=== PATIENT | male | born 1965 | race African-American/Black ===

== ENCOUNTER 2017-07-10 16:22 | Inpatient (IN) | payer OTHER ==
[2017-07-10 16:41] VITALS: BMI 22.1
[2017-07-10] MEDS ORDERED: P-EPHED 60MG/TRIPROLIDI 2.5MG TABLET PO PRN (19:32)
[2017-07-10] MEDS ORDERED: IBUPROFEN 400 MG TABLET (FP) PO PRN (19:32)
[2017-07-10] MEDS ORDERED: guaiFENesin/D-METHORPHAN HB 10 ML UNIT-DOSE CUPS PO PRN (19:32)
[2017-07-10] MEDS ORDERED: chlordiazePOXIDE HCL 25 MG CAPSULE PO ONE (19:32)
[2017-07-10] MEDS ORDERED: LOPERAMIDE HCL 2 MG CAPSULE PO PRN (19:32)
[2017-07-10] MEDS ORDERED: NICOTINE POLACRILEX 2 MG GUM BC PRN (19:32)
[2017-07-10] MEDS ORDERED: chlordiazePOXIDE HCL 25 MG CAPSULE PO PRN (19:32)
[2017-07-10] MEDS ORDERED: MAGNESIUM HYDROX 2400MG/30ML ORAL SUSPENSION 30 ML CUP PO PRN (19:32)
[2017-07-10] MEDS ORDERED: MENTHOL/PHENOL 1 EACH UD MM PRN (19:32)
[2017-07-10] MEDS ORDERED: MAG HYDROX/AL HYDROX/SIMETH 30 ML UNIT-DOSE CUP PO PRN (19:32)
[2017-07-10] MEDS ORDERED: ACETAMINOPHEN 325 MG TABLET (FP) PO PRN (19:32)
[2017-07-10] MEDS ORDERED: MAGNESIUM CITRATE 300 ML BOTTLE PO PRN (19:32)
[2017-07-10] MEDS ORDERED: METHADONE HCL 10 MG TABLET (FOR DETOX USE ONLY) PO ONE ×2 (19:32→23:00)
--- NOTE | 2017-07-10 19:43 | HP ---
Admission ROS [facility] - [facility] Allergies/Adverse Reactions: Allergies Allergy/AdvReac Type Severity Reaction Status Date / Time shellfish derived Allergy Mild Hives Verified 10/22/16 13:31 No Known Drug Allergies Allergy Verified 10/22/16 13:31 - Ebola screening Have you traveled outside of the country in the last 21 days: No (N) Have you had contact with anyone from an Ebola affected area: No Have you been sick,other than usual withdrawal symptoms: No Do you have a fever: No Patient History - Patient Medical History Hx Anemia: No Hx Asthma: No Hx Chronic Obstructive Pulmonary Disease (COPD): No Hx Cancer: No Hx Cardiac Disorders: Yes (pacemaker in place) Hx Congestive Heart Failure: No Hx Hypertension: Yes Hx Hypercholesterolemia: Yes (ON MEDS) Hx Pacemaker: No HX Cerebrovascular Accident: No Hx Seizures: No Hx Dementia: No Hx Diabetes: No Hx Gastrointestinal Disorders: Yes (acid reflux) Hx Liver Disease: No Hx Genitourinary Disorders: No Hx Sexually Transmitted Disorders: No Hx Renal Disease (ESRD): No Hx Thyroid Disease: No Hx Human Immunodeficiency Virus (HIV): Yes (SINCE 1994-ON MEDS; ORAL THRUSH AND PCP PNEUMONIA IN THE PAST.) Hx Hepatitis C: No Hx Depression: Yes Hx Suicide Attempt: No Hx Bipolar Disorder: No (HX INSOMNIA) Hx Schizophrenia: No - Patient Surgical History Past Surgical History: Yes Hx Neurologic Surgery: No Hx Cataract Extraction: No Hx Cardiac Surgery: Yes (Cardiac cath with stents in 07/15) Hx Lung Surgery: No Hx Breast Surgery: No Hx Breast Biopsy: No Hx Abdominal Surgery: No Hx Appendectomy: No Hx Cholecystectomy: No Hx Genitourinary Surgery: No Hx Section: No Hx Orthopedic Surgery: No Other Surgical History: pacemaker implanted in 2013 Anesthesia Reaction: No - Smoking Cessation Smoking history: Current every day smoker Have you smoked in the past 12 months: Yes Aproximately how many cigarettes per day: 20 Hx Chewing Tobacco Use: No Initiated information on smoking cessation: Yes 'Breaking Loose' booklet given: 07/10/17 - Substance & Tx. History Hx Alcohol Use: Yes Hx Substance Use: Yes Substance Use Type: Alcohol, Heroin Hx Substance Use Treatment: Yes (Detox) - Substances Abused Alcohol Route: Oral Frequency: Daily Amount used: Vodka 1 pint Age of first use: 15 Date of Last Use: 07/10/17 Heroin Route: Inhalation Frequency: Daily Amount used: 3-4 bags Age of first use: 15 Date of Last Use: 07/10/17 Family Disease History - Family Disease History Family History: Denies Admission Physical Exam [facility] - Vital Signs Vital Signs: Vital Signs - 24 hr 07/10/17 16:39 Temperature 98.6 F Pulse Rate 81 Respiratory 18 Rate Blood Pressure 107/70 - Physical General Appearance: Yes: Tremorous, Irritable, Sweating, Anxious HEENTM: Yes: Nasal Congestion, Rhinorrhea Respiratory: Yes: Chest Non-Tender, Lungs Clear, Normal Breath Sounds Neck: Yes: Supple Breast: Yes: Breast Exam Deferred Cardiology: Yes: Regular Rhythm, Regular Rate, S1, S2 Abdominal: Yes: Normal Bowel Sounds, Non Tender, Soft Genitourinary: Yes: Within Normal Limits Back: Yes: Within Normal Limits Musculoskeletal: Yes: Within Normal Limits Extremities: Yes: Tremors Neurological: Yes: Fully Oriented, Alert Integumentary: Yes: Diaphoresis Lymphatic: Yes: Within Normal Limits - Diagnostic (1) Opioid dependence with withdrawal Current Visit: Yes Status: Acute (2) Alcohol dependence with uncomplicated withdrawal Current Visit: Yes Status: Acute (3) PPD positive Current Visit: No Status: Acute (4) Status post myocardial infarction Current Visit: No Status: Acute (5) HIV disease Current Visit: Yes Status: Chronic Cleared for Admission [facility] - Detox or Rehab [facility] Level of Care: Medically Managed Detox Regimen/Protocol: Methadone/Librium [facility] Breath Alcohol Content Breath Alcohol Content: 0 Urine Drug Screen - Results Drug Screen Negative: No Urine Drug Screen Results: OPI-Opiates, MTD-Methadone
[2017-07-10] MEDS ORDERED: METHADONE HCL 10 MG TABLET (FOR DETOX USE ONLY) ONE (22:10)
[2017-07-10] MEDS: chlordiazePOXIDE HCL 25 MG CAPSULE PO SCH (22:11)
[2017-07-10] MEDS: ATORVASTATIN CA 40 MG TABLET (FP) PO SCH (22:11)
[2017-07-10] MEDS: THIAMINE HCL 100 MG TABLET (FP) PO SCH (22:12)
[2017-07-10] MEDS: CARVEDILOL 12.5 MG TABLET (FP) PO SCH (23:01)
[2017-07-10] MEDS: NICOTINE 21 MG/24 HOURS TOPICAL PATCH TD SCH (23:17)
[2017-07-11] MEDS: hydrALAZINE HCL 25 MG TABLET (FP) PO SCH ×3 (00:13→22:16)
[2017-07-11] MEDS: chlordiazePOXIDE HCL 25 MG CAPSULE PO SCH ×4 (05:19→22:14)
[2017-07-11] MEDS ORDERED: METHADONE HCL 10 MG TABLET (FOR DETOX USE ONLY) PO SCH (10:00)
[2017-07-11] MEDS ORDERED: LISINOPRIL PO SCH (10:00)
[2017-07-11 10:10] LABS: ANION GAP 7 (8-16); CALCIUM 7.8 mg/dL (8.5-10.1); CHLORIDE 103 mmol/L (98-107); CO2 28 mmol/L (21-32); POTASSIUM 3.5 mmol/L (3.5-5.1); SODIUM 138 mmol/L (136-145)
[2017-07-11 10:13] LABS: HEMATOCRIT 39.6 % (35.4-49); HEMOGLOBIN 13.1 GM/dL (11.7-16.9); MCHC 33.1 g/dl (32.0-35.9); MEAN CELL VOLUME 102.7 fl (80-96); MEAN PLT VOLUME 9.1 fl (7.5-11.1); PLATELET COUNT 109 K/MM3 (134-434); RBC 3.85 M/mm3 (4.00-5.60); RDW 12.8 % (11.9-15.9); WHITE BLOOD COUNT 4.2 K/mm3 (4.0-10.0)
[2017-07-11 10:16] LABS: ALBUMIN 3.1 g/dl (3.4-5.0); ALK PHOS 96 U/L (45-117); BILIRUBIN,TOTAL 0.7 mg/dL (0.2-1.0); BLOOD UREA NITROGEN 8 mg/dL (7-18); GLUCOSE,RANDOM 100 mg/dL (74-106); SGOT/AST 14 U/L (15-37); SGPT/ALT 19 U/L (12-78); TOT PROT 6.8 g/dl (6.4-8.2)
--- NOTE | 2017-07-11 10:37 | CONSULT ---
[facility] Psychiatric Consult - Data Date of interview: 07/11/17 Admission source: Self-referred Identifying data: Mr Rice is a 49 years old single Black male, unemployed on HASA, domiciled seeking detox treatment for alcohol and heroin Substance Abuse History: Reports history of alcohol and heroin use. Refer to addiction counselor's note for further information Medical History: Significant for hypertension, hyperlipidemia, gerd, hiv/aids, CAD/NC with stent and pacemaker placement. Smokes cigarettes 1ppd Psychiatric History: Patient is uncooperative, guarded and negativistic. At first, he denies having a previous psychiatric history. However when reminded of information he provided to machine sign writer on a previous encounter when he sought detox in this facilty in 2014, He acknowledged that history and said:'I don' t see psychiatrist anymore. I have not taken medicaton for years'. In Mar 2015 , he told machine sign writer that he was diagnosed with Bipolar Disorder years ago. He denied previous psychiatric hospitalization. Reported non-compliance with OPD care and medications. Told machine sign writer that he used to take paxil, Remeron and stopped medication in 2012. At present, reports feeling fine and sleeping well. However, he looks angry Physical/Sexual Abuse/Trauma History: Denies history of verbal, physical or sexual abuse as well as DV relationship. No service Additional Comment: Reports history of one previous misdemeanor arrest Mental Status Exam - Mental Status Exam Alert and Oriented to: Time, Place, Person Cognitive Function: Fair Patient Appearance: Well Groomed Mood: Irritable Affect: Appropriate Patient Behavior: Uncooperative Speech Pattern: Clear Voice Loudness: Normal Thought Process: Intact, Goal Oriented Hallucinations: Denies Suicidal Ideation: Denies Homicidal Ideation: Denies Insight/Judgement: Poor Sleep: Well Appetite: Good Muscle strength/Tone: Normal Gait/Station: Normal Psychiatric Findings - Problem List ([place] 1, 2,3) (1) Substance induced mood disorder Current Visit: Yes Status: Acute (2) Alcohol dependence with uncomplicated withdrawal Current Visit: Yes Status: Acute (3) Opioid dependence with withdrawal Current Visit: Yes Status: Acute (4) Nicotine dependence Current Visit: No Status: Chronic (5) HIV disease Current Visit: Yes Status: Chronic (6) PPD positive Current Visit: No Status: Acute (7) Peripheral neuropathy Current Visit: No Status: Chronic (8) S/P arterial stent Current Visit: No Status: Chronic (9) Status post myocardial infarction Current Visit: No Status: Chronic (10) HTN (hypertension) Current Visit: No Status: Chronic (11) Hyperlipidemia Current Visit: No Status: Chronic - Initial Treatment Plan Initial Treatment Plan: Continue inpatient detoxification
[2017-07-11] MEDS: CLOPIDOGREL BISULFATE 75 MG TABLET (FP) PO SCH (10:59)
[2017-07-11] MEDS: PANTOPRAZOLE 40 MG TABLET (FP) PO SCH (10:59)
[2017-07-11] MEDS: LISINOPRIL 5 MG TABLET (FP) PO SCH (10:59)
[2017-07-11] MEDS: FUROSEMIDE 40 MG TABLET (FP) PO SCH (10:59)
[2017-07-11] MEDS: PRENATAL VITAMINS W/ FOLIC ACID TABLET (FP) PO SCH (10:59)
[2017-07-11] MEDS: CARVEDILOL 12.5 MG TABLET (FP) PO SCH ×2 (10:59→22:16)
[2017-07-11] MEDS: ASPIRIN COATED 81 MG TABLET.EC PO SCH (10:59)
[2017-07-11] MEDS: NICOTINE 21 MG/24 HOURS TOPICAL PATCH TD SCH (11:00)
[2017-07-11] MEDS ORDERED: FLU VACCINE QUAD 60 MCG/0.5 ML (MDV 17-18) IM ONE (12:00)
[2017-07-11] MEDS ORDERED: PNEUMOC 13-VAL CONJ-DIP CRM/PF 0.5 ML DISP.SYRIN IM ONE (12:00)
--- NOTE | 2017-07-11 12:53 | PN ---
S CIWA - CIWA Score Nausea/Vomitin Muscle Tremors: 4-Moderate,w/Arms Extend Anxiety: 4-Mod. Anxious/Guarded Agitation: 4-Moderately Restless Paroxysmal Sweats: 3 Orientation: 0-Oriented Tacttile Disturbances: 1-Very Mild Itch/Numbness Auditory Disturbances: 0-None Visual Disturbances: 0-None Headache: 1-Very Mild CIWA-Ar Total Score: 20 BHS COWS - Scale Resting Pulse: 0= [place] 80 or Below Sweatin=Flushed/Facial Moisture Restless Observation: 3= Extraneous Movement Pupil Size: 0= Normal to Room Light Bone or Joint Aches: 2= Severe Diffuse Aches Runny Nose/ Eye Tearin= Nasal Congestion GI Upset > 30mins: 2= Nausea/Diarrhea Tremor Observation of Outstretched Hands: 2= Slight Tremor Visible Yawning Observation: 0= None Anxiety or Irritability: 2=Irritable/Anxious Goose Flesh Skin: 0=Smooth Skin COWS Score: 14 BHS Progress Note (SOAP) Subjective: Sweating, tremor, anxious, interrupted sleep Objective: 07/11/17 12:49 Last Vital Signs Temp Pulse Resp BP Pulse Ox 97.1 F L 65 18 98/66 07/11/17 10:31 07/11/17 10:31 07/11/17 10:31 07/11/17 10:31 b/p noted: hypotension (asymptomatic) Laboratory Tests 07/11/17 07/11/17 07/11/17 08:00 08:00 08:00 WBC 4.2 RBC 3.85 L Hgb 13.1 Hct 39.6 MCV 102.7 H MCH 34.0 H MCHC 33.1 RDW 12.8 Plt Count 109 L D MPV 9.1 D Sodium 138 Potassium 3.5 Chloride 103 Carbon Dioxide 28 Anion Gap 7 L BUN 8 Creatinine 1.0 D Creat Clearance w eGFR > 60 Random Glucose 100 D Calcium 7.8 L Total Bilirubin 0.7 AST 14 L D ALT 19 D Alkaline Phosphatase 96 D Total Protein 6.8 Albumin 3.1 L RPR Titer Nonreactive Labs noted Assessment: 07/11/17 12:50 Withdrawal symptoms Noted with abnormal EKG (prolonged QTc of 481) Plan: Continue detox Hypotension: asymptomatic, encouraged to drink lots of water Abnormal EKG (prolonged QTc): asymptomatic, repeat EKG in AM
[2017-07-11] MEDS ORDERED: ATORVASTATIN CA 20 MG TABLET (FP) ONE (21:29)
[2017-07-11] MEDS: ATORVASTATIN CA 40 MG TABLET (FP) PO SCH (22:14)
[2017-07-11] MEDS: hydrOXYzine PAMOATE 50 MG CAPSULE (FP) PO PRN (22:16)
[2017-07-11] MEDS: THIAMINE HCL 100 MG TABLET (FP) PO SCH (22:16)
[2017-07-12] MEDS: chlordiazePOXIDE HCL 25 MG CAPSULE PO SCH ×3 (06:26→17:34)
[2017-07-12] MEDS: PRENATAL VITAMINS W/ FOLIC ACID TABLET (FP) PO SCH (10:09)
[2017-07-12] MEDS: hydrALAZINE HCL 25 MG TABLET (FP) PO SCH ×2 (10:09→22:19)
[2017-07-12] MEDS: CARVEDILOL 12.5 MG TABLET (FP) PO SCH ×2 (10:09→22:19)
[2017-07-12] MEDS: NICOTINE 21 MG/24 HOURS TOPICAL PATCH TD SCH (10:11)
[2017-07-12] MEDS: METHADONE HCL 5 MG TABLET (FOR DETOX USE ONLY) PO SCH (10:11)
[2017-07-12] MEDS: ASPIRIN COATED 81 MG TABLET.EC PO SCH (10:11)
[2017-07-12] MEDS: FUROSEMIDE 40 MG TABLET (FP) PO SCH (10:11)
[2017-07-12] MEDS: CLOPIDOGREL BISULFATE 75 MG TABLET (FP) PO SCH (10:12)
[2017-07-12] MEDS: PANTOPRAZOLE 40 MG TABLET (FP) PO SCH (10:12)
[2017-07-12] MEDS: LISINOPRIL 5 MG TABLET (FP) PO SCH (10:12)
--- NOTE | 2017-07-12 12:01 | PN ---
[facility] CIWA - CIWA Score Nausea/Vomitin-No Nausea/No Vomiting Muscle Tremors: 3 Anxiety: 4-Mod. Anxious/Guarded Agitation: 3 Paroxysmal Sweats: 3 Orientation: 0-Oriented Tacttile Disturbances: 2-Mild Itch/Numbness/Burn Auditory Disturbances: 0-None Visual Disturbances: 0-None Headache: 0-None Present CIWA-Ar Total Score: 15 BHS COWS - Scale Resting Pulse: 0= [place] 80 or Below Sweatin= Chills/Flushing Restless Observation: 1= Difficult to Sit Still Pupil Size: 0= Normal to Room Light Bone or Joint Aches: 1= Mild Discomfort Runny Nose/ Eye Tearin= Nasal Congestion GI Upset > 30mins: 0= None Tremor Observation of Outstretched Hands: 2= Slight Tremor Visible Yawning Observation: 1= 1-2x During Session Anxiety or Irritability: 2=Irritable/Anxious Goose Flesh Skin: 3=Piloerection COWS Score: 12 BHS Progress Note (SOAP) Subjective: Tremors, Sweating, Anxious. Objective: PT. A & O X 3, OBSERVED AMBULATING ON UNIT. NO ACUTE DISTRESS. 07/12/17 11:58 Vital Signs Temperature 98.9 F 07/12/17 09:20 Pulse Rate 75 07/12/17 09:20 Respiratory Rate 16 07/12/17 09:20 Blood Pressure 111/72 07/12/17 09:20 O2 Sat by Pulse Oximetry (%) Laboratory Tests 07/11/17 07/11/17 07/11/17 08:00 08:00 08:00 WBC 4.2 RBC 3.85 L Hgb 13.1 Hct 39.6 MCV 102.7 H MCH 34.0 H MCHC 33.1 RDW 12.8 Plt Count 109 L D MPV 9.1 D Sodium 138 Potassium 3.5 Chloride 103 Carbon Dioxide 28 Anion Gap 7 L BUN 8 Creatinine 1.0 D Creat Clearance w eGFR > 60 Random Glucose 100 D Calcium 7.8 L Total Bilirubin 0.7 AST 14 L D ALT 19 D Alkaline Phosphatase 96 D Total Protein 6.8 Albumin 3.1 L RPR Titer Nonreactive LABS NOTED. UA RESULTS PENDING. 07/12/17 12:00 Assessment: 07/12/17 11:58 WITHDRAWAL SYMPTOMS. Plan: CONTINUE DETOX.
--- NOTE | 2017-07-12 15:14 | EKG ---
Test Reason : Blood Pressure : / mmHG Vent. Rate : 062 BPM Atrial Rate : 062 BPM P-R Int : 166 ms QRS Dur : 092 ms QT Int : 474 ms P-R-T Axes : 044 -13 244 degrees QTc Int : 481 ms NORMAL SINUS RHYTHM SEPTAL INFARCT (CITED ON OR BEFORE 10-JUL-2017) ABNORMAL ECG WHEN COMPARED WITH ECG OF 10-JUL-2017 22:30, Confirmed by LYDNA CERVANTES MD ([id number]) on 07/12/2017 3:14:43 PM Referred By: Confirmed By:LYNDA CERVANTES MD
[2017-07-12] MEDS: chlordiazePOXIDE 5 MG CAPSULE PO SCH (22:18)
[2017-07-12] MEDS: THIAMINE HCL 100 MG TABLET (FP) PO SCH (22:18)
[2017-07-12] MEDS: ATORVASTATIN CA 40 MG TABLET (FP) PO SCH (22:19)
[2017-07-12] MEDS: hydrOXYzine PAMOATE 50 MG CAPSULE (FP) PO PRN (22:20)
[2017-07-13] MEDS: chlordiazePOXIDE 5 MG CAPSULE PO SCH ×3 (05:22→17:32)
[2017-07-13] MEDS: PRENATAL VITAMINS W/ FOLIC ACID TABLET (FP) PO SCH (10:13)
[2017-07-13] MEDS: METHADONE HCL 5 MG TABLET (FOR DETOX USE ONLY) PO SCH (10:13)
[2017-07-13] MEDS: PANTOPRAZOLE 40 MG TABLET (FP) PO SCH (10:13)
[2017-07-13] MEDS: LISINOPRIL 5 MG TABLET (FP) PO SCH (10:14)
[2017-07-13] MEDS: CLOPIDOGREL BISULFATE 75 MG TABLET (FP) PO SCH (10:14)
[2017-07-13] MEDS: CARVEDILOL 12.5 MG TABLET (FP) PO SCH ×2 (10:14→22:15)
[2017-07-13] MEDS: FUROSEMIDE 40 MG TABLET (FP) PO SCH (10:14)
[2017-07-13] MEDS: ASPIRIN COATED 81 MG TABLET.EC PO SCH (10:14)
[2017-07-13] MEDS: NICOTINE 21 MG/24 HOURS TOPICAL PATCH TD SCH (10:14)
[2017-07-13] MEDS: hydrALAZINE HCL 25 MG TABLET (FP) PO SCH ×2 (10:14→22:15)
--- NOTE | 2017-07-13 10:30 | PN ---
BHS Progress Note (SOAP) Subjective: tremor sweating agitation Objective: 07/13/17 10:29 Vital Signs Temperature 99.1 F 07/13/17 09:10 Pulse Rate 81 07/13/17 09:10 Respiratory Rate 16 07/13/17 09:10 Blood Pressure 100/68 07/13/17 09:10 O2 Sat by Pulse Oximetry (%) Laboratory Last Values WBC 4.2 K/mm3 (4.0-10.0) 07/11/17 08:00 RBC 3.85 M/mm3 (4.00-5.60) L 07/11/17 08:00 Hgb 13.1 GM/dL (11.7-16.9) 07/11/17 08:00 Hct 39.6 % (35.4-49) 07/11/17 08:00 MCV 102.7 fl (80-96) H 07/11/17 08:00 MCH 34.0 pg (25.7-33.7) H 07/11/17 08:00 MCHC 33.1 g/dl (32.0-35.9) 07/11/17 08:00 RDW 12.8 % (11.9-15.9) 07/11/17 08:00 Plt Count 109 K/MM3 (134-434) L D 07/11/17 08:00 MPV 9.1 fl (7.5-11.1) D 07/11/17 08:00 Sodium 138 mmol/L (136-145) 07/11/17 08:00 Potassium 3.5 mmol/L (3.5-5.1) 07/11/17 08:00 Chloride 103 mmol/L (98-107) 07/11/17 08:00 Carbon Dioxide 28 mmol/L (21-32) 07/11/17 08:00 Anion Gap 7 (8-16) L 07/11/17 08:00 BUN 8 mg/dL (7-18) 07/11/17 08:00 Creatinine 1.0 mg/dL (0.7-1.3) D 07/11/17 08:00 Creat Clearance w eGFR > 60 (>60) 07/11/17 08:00 Random Glucose 100 mg/dL (74-106) D 07/11/17 08:00 Calcium 7.8 mg/dL (8.5-10.1) L 07/11/17 08:00 Total Bilirubin 0.7 mg/dL (0.2-1.0) 07/11/17 08:00 AST 14 U/L (15-37) L D 07/11/17 08:00 ALT 19 U/L (12-78) D 07/11/17 08:00 Alkaline Phosphatase 96 U/L (45-117) D 07/11/17 08:00 Total Protein 6.8 g/dl (6.4-8.2) 07/11/17 08:00 Albumin 3.1 g/dl (3.4-5.0) L 07/11/17 08:00 RPR Titer Nonreactive (NONREACTIVE) 07/11/17 08:00 lab noted Assessment: 07/13/17 10:29 mild withdrawal sx Plan: observation with detox regimen
[2017-07-13 19:17] LABS: URINE APPEARANCE SLCLOUDY; URINE BILIRUBIN NEGATIVE (NEGATIVE); URINE BLOOD NEGATIVE (NEGATIVE); URINE COLOR YELLOW; URINE GLUCOSE (UA) NEGATIVE (NEGATIVE); URINE KETONE NEGATIVE (NEGATIVE); URINE LEUK ESTERASE NEGATIVE (NEGATIVE); URINE NITRITE NEGATIVE (NEGATIVE); URINE PROTEIN NEGATIVE (NEGATIVE)
[2017-07-13] MEDS: ATORVASTATIN CA 40 MG TABLET (FP) PO SCH (22:15)
[2017-07-13] MEDS: THIAMINE HCL 100 MG TABLET (FP) PO SCH (22:15)
[2017-07-13] MEDS: chlordiazePOXIDE HCL 10 MG CAPSULE PO SCH (22:15)
[2017-07-13] MEDS: hydrOXYzine PAMOATE 50 MG CAPSULE (FP) PO PRN (22:49)
[2017-07-14] MEDS: chlordiazePOXIDE HCL 10 MG CAPSULE PO SCH ×2 (05:55→10:15)
[2017-07-14 09:50] VITALS: BP 105/64; PULSE 79; TEMP 98.1
[2017-07-14] MEDS ORDERED: METHADONE HCL 10 MG TABLET (FOR DETOX USE ONLY) PO SCH (10:00)
[2017-07-14] MEDS: CARVEDILOL 12.5 MG TABLET (FP) PO SCH (10:14)
[2017-07-14] MEDS: CLOPIDOGREL BISULFATE 75 MG TABLET (FP) PO SCH (10:14)
[2017-07-14] MEDS: ASPIRIN COATED 81 MG TABLET.EC PO SCH (10:14)
[2017-07-14] MEDS: hydrALAZINE HCL 25 MG TABLET (FP) PO SCH (10:14)
[2017-07-14] MEDS: FUROSEMIDE 40 MG TABLET (FP) PO SCH (10:14)
[2017-07-14] MEDS: PRENATAL VITAMINS W/ FOLIC ACID TABLET (FP) PO SCH (10:14)
[2017-07-14] MEDS: LISINOPRIL 5 MG TABLET (FP) PO SCH (10:15)
[2017-07-14] MEDS: NICOTINE 21 MG/24 HOURS TOPICAL PATCH TD SCH (10:15)
[2017-07-14] MEDS: PANTOPRAZOLE 40 MG TABLET (FP) PO SCH (10:15)
--- NOTE | 2017-07-14 10:42 | PN ---
S Progress Note (SOAP) Subjective: PT IS ALERT O X 3. WANTS TO LEAVE TODAY BUT ON METHADONE AND LIBRIUM PROTOCOL NOT COMPLETED. EXPLAINED TO PT THE NEED TO STAY FOR APPROPRIATE TAPER BUT DECIDED TO SIGN HIMSELF OUT AMA. Objective: 07/14/17 10:45 Vital Signs Temperature 98.1 F 07/14/17 09:50 Pulse Rate 79 07/14/17 09:50 Respiratory Rate 18 07/14/17 09:50 Blood Pressure 105/64 07/14/17 09:50 O2 Sat by Pulse Oximetry (%) Laboratory Last Values WBC 4.2 K/mm3 (4.0-10.0) 07/11/17 08:00 RBC 3.85 M/mm3 (4.00-5.60) L 07/11/17 08:00 Hgb 13.1 GM/dL (11.7-16.9) 07/11/17 08:00 Hct 39.6 % (35.4-49) 07/11/17 08:00 MCV 102.7 fl (80-96) H 07/11/17 08:00 MCH 34.0 pg (25.7-33.7) H 07/11/17 08:00 MCHC 33.1 g/dl (32.0-35.9) 07/11/17 08:00 RDW 12.8 % (11.9-15.9) 07/11/17 08:00 Plt Count 109 K/MM3 (134-434) L D 07/11/17 08:00 MPV 9.1 fl (7.5-11.1) D 07/11/17 08:00 Sodium 138 mmol/L (136-145) 07/11/17 08:00 Potassium 3.5 mmol/L (3.5-5.1) 07/11/17 08:00 Chloride 103 mmol/L (98-107) 07/11/17 08:00 Carbon Dioxide 28 mmol/L (21-32) 07/11/17 08:00 Anion Gap 7 (8-16) L 07/11/17 08:00 BUN 8 mg/dL (7-18) 07/11/17 08:00 Creatinine 1.0 mg/dL (0.7-1.3) D 07/11/17 08:00 Creat Clearance w eGFR > 60 (>60) 07/11/17 08:00 Random Glucose 100 mg/dL (74-106) D 07/11/17 08:00 Calcium 7.8 mg/dL (8.5-10.1) L 07/11/17 08:00 Total Bilirubin 0.7 mg/dL (0.2-1.0) 07/11/17 08:00 AST 14 U/L (15-37) L D 07/11/17 08:00 ALT 19 U/L (12-78) D 07/11/17 08:00 Alkaline Phosphatase 96 U/L (45-117) D 07/11/17 08:00 Total Protein 6.8 g/dl (6.4-8.2) 07/11/17 08:00 Albumin 3.1 g/dl (3.4-5.0) L 07/11/17 08:00 Urine Color Yellow 07/13/17 18:30 Urine Appearance Slcloudy 07/13/17 18:30 Urine pH 5.0 (5.0-8.0) 07/13/17 18:30 Ur Specific [place] 1.014 (1.001-1.035) 07/13/17 18:30 Urine Protein Negative (NEGATIVE) 07/13/17 18:30 Urine Glucose (UA) Negative (NEGATIVE) 07/13/17 18:30 Urine Ketones Negative (NEGATIVE) 07/13/17 18:30 Urine Blood Negative (NEGATIVE) 07/13/17 18:30 Urine Nitrite Negative (NEGATIVE) 07/13/17 18:30 Urine Bilirubin Negative (NEGATIVE) 07/13/17 18:30 Urine Urobilinogen 2.0 mg/dL (0.2-1.0) 07/13/17 18:30 Ur Leukocyte Esterase Negative (NEGATIVE) 07/13/17 18:30 RPR Titer Nonreactive (NONREACTIVE) 07/11/17 08:00 Assessment: 07/14/17 10:46 SLIGHT WITHDRAWAL SX NAD Plan: PT SIGNED AMA.
--- NOTE | 2017-07-14 10:51 | DS ---
[facility] Detox Discharge Summary Admission Date: 07/10/17 Discharge Date: 07/14/17 - History Present History: Alcohol Dependence, Opioid Dependence Additional Comments: PT DECLINED TO COMPLETE DETOX. INSTRUCTED TO FOLLOW UP WITH PMD FOR MEDICAL MANAGEMENT OF COMORBID CONDITIONS NEEDED. Pertinent Past History: HTN HIV+ HYPERLIPIDEMIA S/P [place] S/P ATERIAL STENT GERD - Physical Exam Results Vital Signs: Vital Signs Temperature 98.1 F 07/14/17 09:50 Pulse Rate 79 07/14/17 09:50 Respiratory Rate 18 07/14/17 09:50 Blood Pressure 105/64 07/14/17 09:50 O2 Sat by Pulse Oximetry (%) - Treatment Hospital Course: Discharged Condition Good - Medication Discharge Medications: Ambulatory Orders Aspirin [ASA -] 81 mg PO DAILY 10/25/14 Clopidogrel Bisulfate [Clopidogrel] 75 mg PO DAILY 10/25/14 Lisinopril [Prinivil -] 2.5 mg PO DAILY 10/25/14 Pantoprazole Sodium [Protonix] 40 mg PO DAILY 10/25/14 Atorvastatin Calcium 40 mg PO HS 03/18/15 Carvedilol [Coreg -] 12.5 mg PO BID 03/18/15 Furosemide [Lasix -] 40 mg PO DAILY 03/18/15 Elviteg/Annalise/Emtric/Tenofo Dis [Stribild Tablet] 1 each PO DAILY 10/22/16 Hydralazine HCl [Apresoline -] 25 mg PO BID 10/22/16 Rilpivirine HCl [Edurant] 25 mg PO DAILY 10/22/16 - Diagnosis (1) Alcohol dependence with uncomplicated withdrawal Status: Acute (2) Opioid dependence with withdrawal Status: Acute (3) Status post myocardial infarction Status: Chronic (4) HIV disease Status: Chronic (5) HTN (hypertension) Status: Chronic Qualifiers: Hypertension type: essential hypertension Qualified Code(s): I10 - Essential (primary) hypertension (6) Hyperlipidemia Status: Chronic (7) Nicotine dependence Status: Acute Qualifiers: Nicotine product type: cigarettes Substance use status: in withdrawal Qualified Code(s): F17.213 - Nicotine dependence, cigarettes, with withdrawal (8) Peripheral neuropathy Status: Chronic (9) S/P arterial stent Status: Chronic (10) GERD (gastroesophageal reflux disease) Status: Chronic Qualifiers: Esophagitis presence: without esophagitis Qualified Code(s): K21.9 - Gastro -esophageal reflux disease without esophagitis - AMA Did Patient Leave Against Medical Advice: Yes (AMA)
[2017-07-15] MEDS ORDERED: METHADONE HCL 5 MG TABLET (FOR DETOX USE ONLY) PO SCH (06:00)
== END 2017-07-14 10:44 | disposition left against medical advice (07) | DRG 770 ==
LOC: YASAS 16:22 → Y3N 18:36
PROVIDERS: ADMIT Internal Medicine; ATTEND Internal Medicine
PROC: HZ2ZZZZ Detoxification Services for Substance Abuse Treatment (ICD-10-PCS; principal; 2017-07-10)
DX: F11.23 Opioid dependence with withdrawal (principal); F10.230 Alcohol dependence with withdrawal, uncomplicated; F19.24 Other psychoactive substance dependence with psychoactive substance-induced mood disorder; F32.9 Major depressive disorder, single episode, unspecified; G47.00 Insomnia, unspecified; K21.9 Gastro-esophageal reflux disease without esophagitis; E78.5 Hyperlipidemia, unspecified; I25.2 Old myocardial infarction; I25.10 Atherosclerotic heart disease of native coronary artery without angina pectoris; Z95.5 Presence of coronary angioplasty implant and graft; G62.9 Polyneuropathy, unspecified; Z21 Asymptomatic human immunodeficiency virus [HIV] infection status; R76.11 Nonspecific reaction to tuberculin skin test without active tuberculosis; Z95.0 Presence of cardiac pacemaker
CPT/HCPCS: 36415; 71010-TC; 80053; 81003; 85027; 86593; 90688; 93005; 93010; G0008

== ENCOUNTER 2017-08-17 12:30 | Inpatient (IN) | payer OTHER ==
[2017-08-17 15:43] VITALS: BMI 22.5
--- NOTE | 2017-08-17 16:57 | HP ---
COWS - Scale Resting Pulse: 0= [place] 80 or Below Sweatin= Chills/Flushing Restless Observation: 3= Extraneous Movement Pupil Size: 0= Normal to Room Light Bone or Joint Aches: 2= Severe Diffuse Aches Runny Nose/ Eye Tearin= Runny Nose/Eyes GI Upset > 30mins: 1= Stomach Cramp Tremor Observation: 2= Slight Tremor Visible Yawning Observation: 2= >3x During Session Anxiety or Irritability: 2=Irritable/Anxious Goose Flesh Skin: 0=Smooth Skin COWS Score: 15 CIWA Score - CIWA Score Nausea/Vomitin-Mild Nausea/No Vomiting Muscle Tremors: 4-Moderate,w/Arms Extend Anxiety: 4-Mod. Anxious/Guarded Agitation: 4-Moderately Restless Paroxysmal Sweats: 1-Minimal Palms Moist Orientation: 1-Uncertain about Date Tacttile Disturbances: 0-None Auditory Disturbances: 0-None Visual Disturbances: 0-None Headache: 0-None Present CIWA-Ar Total Score: 15 Admission [facility] - HPI Chief Complaint: withdrawal sx Allergies/Adverse Reactions: Allergies Allergy/AdvReac Type Severity Reaction Status Date / Time shellfish derived Allergy Mild Hives Verified 07/10/17 23:33 No Known Drug Allergies Allergy Verified 07/10/17 23:33 History of Present Illness: 51 years old male with long history of alcohol heroin nicotine dependence has hypertension history of cardiac stant unable to remember when and where has chf and positive ppd weight loss and depression is admitted to detox Exam Limitations: No Limitations - Ebola screening Have you traveled outside of the country in the last 21 days: No Have you had contact with anyone from an Ebola affected area: No Have you been sick,other than usual withdrawal symptoms: No Do you have a fever: No - Review of Systems Constitutional: Loss of Appetite, Changes in sleep, Unintentional Wgt. Loss, Unexplained wgt Loss EENT: reports: No Symptoms Reported Respiratory: reports: No Symptoms reported Cardiac: reports: No Symptoms Reported GI: reports: Nausea, Poor Appetite, Poor Fluid Intake, Abdominal cramping : reports: No Symptoms Reported Musculoskeletal: reports: Back Pain, Joint Pain, Muscle Pain, Neck Pain Integumentary: reports: No Symptoms Reported Neuro: reports: Tremors Endocrine: reports: No Symptoms Reported Hematology: reports: No Symptoms Reported Psychiatric: reports: Judgement Intact, Depressed Other Systems: Reviewed and Negative Patient History - Patient Medical History Hx Anemia: No Hx Asthma: No Hx Chronic Obstructive Pulmonary Disease (COPD): No Hx Cancer: No Hx Cardiac Disorders: Yes (jay 2014) Hx Congestive Heart Failure: Yes Hx Hypertension: Yes Hx Hypercholesterolemia: Yes (ON MEDS) Hx Pacemaker: No HX Cerebrovascular Accident: No Hx Seizures: No Hx Dementia: No Hx Diabetes: No Hx Gastrointestinal Disorders: No Hx Liver Disease: No Hx Genitourinary Disorders: No Hx Sexually Transmitted Disorders: Yes (HIV IN 1994) Hx Renal Disease (ESRD): No Hx Thyroid Disease: No Hx Human Immunodeficiency Virus (HIV): Yes (SINCE 1994-ON MEDS; ORAL THRUSH AND PCP PNEUMONIA IN THE PAST.) Hx Hepatitis C: No Hx Depression: Yes Hx Suicide Attempt: No Hx Bipolar Disorder: No (HX INSOMNIA) Hx Schizophrenia: No - Patient Surgical History Past Surgical History: Yes Hx Neurologic Surgery: No Hx Cataract Extraction: No Hx Cardiac Surgery: Yes (Cardiac cath with stents in 07/15) Hx Lung Surgery: No Hx Breast Surgery: No Hx Breast Biopsy: No Hx Abdominal Surgery: No Hx Appendectomy: No Hx Cholecystectomy: No Hx Genitourinary Surgery: No Hx Orthopedic Surgery: No Other Surgical History: pacemaker implanted in 2013 Anesthesia Reaction: No - PPD History Previous Implant?: Yes Documented Results: Positive w/proof Implanted On Prior R Admission?: No PPD to be Administered?: No - Smoking Cessation Smoking history: Current every day smoker Have you smoked in the past 12 months: Yes Aproximately how many cigarettes per day: 20 Cigars Per Day: 0 Hx Chewing Tobacco Use: No Initiated information on smoking cessation: Yes 'Breaking Loose' booklet given: 08/17/17 - Substance & Tx. History Hx Alcohol Use: Yes Hx Substance Use: Yes Substance Use Type: Alcohol, Heroin Hx Substance Use Treatment: Yes (07/2017 [facility] - Substances Abused Alcohol Route: Oral Frequency: Daily Amount used: 1 PINT OF VODKA Age of first use: 15 Date of Last Use: 08/16/17 Heroin Route: Inhalation Frequency: Daily Amount used: 2-3 BAGS Age of first use: 18 Date of Last Use: 08/17/17 Family Disease History - Family Disease History Family History: Unremarkable Other Family History: refuses to answer questions about family members. only child Admission Physical Exam [facility] - Vital Signs Vital Signs: Vital Signs - 24 hr 08/17/17 15:41 Temperature 98.1 F Pulse Rate 70 Respiratory 20 Rate Blood Pressure 132/83 - Physical General Appearance: Yes: Appropriately Dressed, Mild Distress, Thin, Tremorous, Irritable, Sweating, Anxious HEENTM: Yes: Hearing grossly Normal, Normal ENT Inspection, Normocephalic, Normal Voice Respiratory: Yes: Chest Non-Tender, Lungs Clear, Normal Breath Sounds, No Respiratory Distress, No Accessory Muscle Use Neck: Yes: Supple, Trachea in good position Breast: Yes: Breasts Symetrical Cardiology: Yes: Regular Rhythm, Regular Rate, S1, S2 Abdominal: Yes: Normal Bowel Sounds, Non Tender, Soft Genitourinary: Yes: Within Normal Limits Back: Yes: Normal Inspection Musculoskeletal: Yes: full range of Motion, Gait Steady, Back pain, Muscle Pain Extremities: Yes: Normal Inspection, Normal Range of Motion, Non-Tender, Tremors Neurological: Yes: Alert, Motor Strength 5/5, Normal Response, Depressed Affect Integumentary: Yes: Warm Lymphatic: Yes: Within Normal Limits - Diagnostic (1) Weight loss Current Visit: Yes Status: Acute (2) Depression (emotion) Current Visit: Yes Status: Suspected Qualifiers: Depression Type: dysthymia Qualified Code(s): F34.1 - Dysthymic disorder (3) CHF (congestive heart failure) Current Visit: Yes Status: Chronic Qualifiers: Congestive heart failure type: unspecified Congestive heart failure chronicity: chronic Qualified Code(s): I50.9 - Heart failure, unspecified (4) H/O heart artery stent Current Visit: Yes Status: Resolved (5) Alcohol dependence with uncomplicated withdrawal Current Visit: Yes Status: Acute (6) Nicotine dependence Current Visit: Yes Status: Acute Qualifiers: Nicotine product type: cigarettes Substance use status: in withdrawal Qualified Code(s): F17.213 - Nicotine dependence, cigarettes, with withdrawal (7) Opioid dependence with withdrawal Current Visit: Yes Status: Acute (8) HIV disease Current Visit: Yes Status: Chronic Comment: no medication upon admission (9) HTN (hypertension) Current Visit: Yes Status: Chronic Qualifiers: Hypertension type: essential hypertension Qualified Code(s): I10 - Essential (primary) hypertension (10) PPD positive Current Visit: Yes Status: Resolved Cleared for Admission [facility] - Detox or Rehab [facility] Level of Care: Medically Managed Detox Regimen/Protocol: Methadone/Librium [facility] Breath Alcohol Content Breath Alcohol Content: 0 Urine Drug Screen - Results Drug Screen Negative: No Urine Drug Screen Results: OPI-Opiates, BZO-Benzodiazepines
[2017-08-17] MEDS ORDERED: LOPERAMIDE HCL 2 MG CAPSULE PO PRN (17:08)
[2017-08-17] MEDS ORDERED: ACETAMINOPHEN 325 MG TABLET (FP) PO PRN (17:08)
[2017-08-17] MEDS ORDERED: NICOTINE POLACRILEX 2 MG GUM BC PRN (17:08)
[2017-08-17] MEDS ORDERED: MAGNESIUM HYDROX 2400MG/30ML ORAL SUSPENSION 30 ML CUP PO PRN (17:08)
[2017-08-17] MEDS ORDERED: guaiFENesin/D-METHORPHAN HB 10 ML UNIT-DOSE CUPS PO PRN (17:08)
[2017-08-17] MEDS ORDERED: MAGNESIUM CITRATE 300 ML BOTTLE PO PRN (17:08)
[2017-08-17] MEDS ORDERED: chlordiazePOXIDE HCL 25 MG CAPSULE PO PRN (17:08)
[2017-08-17] MEDS ORDERED: MENTHOL/PHENOL 1 EACH UD MM PRN (17:08)
[2017-08-17] MEDS ORDERED: MAG HYDROX/AL HYDROX/SIMETH 30 ML UNIT-DOSE CUP PO PRN (17:08)
[2017-08-17] MEDS ORDERED: P-EPHED 60MG/TRIPROLIDI 2.5MG TABLET PO PRN (17:08)
[2017-08-17] MEDS ORDERED: METHADONE HCL 10 MG TABLET (FOR DETOX USE ONLY) PO ONE ×2 (18:15→23:00)
[2017-08-17] MEDS: CARVEDILOL 12.5 MG TABLET (FP) PO SCH (22:45)
[2017-08-17] MEDS: THIAMINE HCL 100 MG TABLET (FP) PO SCH (22:45)
[2017-08-17] MEDS: chlordiazePOXIDE HCL 25 MG CAPSULE PO SCH (22:46)
[2017-08-17 23:30] LABS: URINE APPEARANCE CLEAR; URINE BLOOD NEGATIVE (NEGATIVE); URINE COLOR AMBER; URINE GLUCOSE (UA) NEGATIVE (NEGATIVE); URINE KETONE TRACE (NEGATIVE); URINE LEUK ESTERASE NEGATIVE (NEGATIVE); URINE NITRITE NEGATIVE (NEGATIVE); URINE UROBILINOGEN 4.0 E.U/dl mg/dL (0.2-1.0)
[2017-08-17 23:36] LABS: URINE PROTEIN 2+ (NEGATIVE)
[2017-08-17 23:42] LABS: URINE BACTERIA RARE /hpf (NONE SEEN); URINE MUCUS RARE
[2017-08-18] MEDS: chlordiazePOXIDE HCL 25 MG CAPSULE PO SCH ×4 (06:01→22:21)
[2017-08-18] MEDS ORDERED: METHADONE HCL 10 MG TABLET (FOR DETOX USE ONLY) PO SCH (10:00)
[2017-08-18] MEDS: ASPIRIN 81 MG CHEWABLE TABLETS PO SCH (10:14)
[2017-08-18] MEDS: CLOPIDOGREL BISULFATE 75 MG TABLET (FP) PO SCH (10:14)
[2017-08-18] MEDS: PRENATAL VITAMINS W/ FOLIC ACID TABLET (FP) PO SCH (10:14)
[2017-08-18] MEDS: CARVEDILOL 12.5 MG TABLET (FP) PO SCH ×2 (10:14→22:22)
[2017-08-18] MEDS: LISINOPRIL 5 MG TABLET (FP) PO SCH (10:14)
[2017-08-18] MEDS: FUROSEMIDE 40 MG TABLET (FP) PO SCH (10:14)
[2017-08-18] MEDS: NICOTINE 21 MG/24 HOURS TOPICAL PATCH TD SCH (10:15)
[2017-08-18] MEDS: RILPIVIRINE HCL 25 MG TABLET PO SCH (10:15)
[2017-08-18] MEDS: ELVITEG/COB/EMTRI/TENOFO (STRIBILD) TABLET -NF PO SCH (10:15)
[2017-08-18 10:23] LABS: HEMATOCRIT 40.6 % (35.4-49); HEMOGLOBIN 13.2 GM/dL (11.7-16.9); MCH 33.3 pg (25.7-33.7); MCHC 32.5 g/dl (32.0-35.9); MEAN CELL VOLUME 102.3 fl (80-96); MEAN PLT VOLUME 9.5 fl (7.5-11.1); PLATELET COUNT 92 K/MM3 (134-434); RBC 3.96 M/mm3 (4.00-5.60); RDW 13.8 % (11.9-15.9); WHITE BLOOD COUNT 3.5 K/mm3 (4.0-10.0)
[2017-08-18 10:31] LABS: ALBUMIN 2.6 g/dl (3.4-5.0); ANION GAP 5 (8-16); BLOOD UREA NITROGEN 9 mg/dL (7-18); CHLORIDE 108 mmol/L (98-107); CO2 31 mmol/L (21-32); CREATININE 0.9 mg/dL (0.7-1.3); GLUCOSE,RANDOM 75 mg/dL (74-106); POTASSIUM 3.6 mmol/L (3.5-5.1); SGOT/AST 23 U/L (15-37); SGPT/ALT 20 U/L (12-78); SODIUM 144 mmol/L (136-145)
[2017-08-18 10:36] LABS: ALK PHOS 77 U/L (45-117); BILIRUBIN,TOTAL 0.6 mg/dL (0.2-1.0); TOT PROT 6.2 g/dl (6.4-8.2)
--- NOTE | 2017-08-18 10:45 | EKG ---
Test Reason : Blood Pressure : / mmHG Vent. Rate : 062 BPM Atrial Rate : 062 BPM P-R Int : 142 ms QRS Dur : 090 ms QT Int : 506 ms P-R-T Axes : 034 -31 266 degrees QTc Int : 513 ms NORMAL SINUS RHYTHM LEFT AXIS DEVIATION SEPTAL INFARCT (CITED ON OR BEFORE 10-JUL-2017) T WAVE ABNORMALITY, CONSIDER INFERIOR ISCHEMIA T WAVE ABNORMALITY, CONSIDER ANTEROLATERAL ISCHEMIA PROLONGED QT ABNORMAL ECG WHEN COMPARED WITH ECG OF 11-JUL-2017 10:29, T WAVE INVERSION LESS EVIDENT IN LATERAL LEADS Confirmed by LAURIE JEFFERY MD ([id number]) on 08/18/2017 10:45:32 AM Referred By: Confirmed By:LAURIE JEFFERY MD
--- NOTE | 2017-08-18 11:23 | CONSULT ---
[facility] Psychiatric Consult - Data Date of interview: 08/18/17 Admission source: [facility] Identifying data: Pt. is a 51 year old male, single, father of one, and currently unemployed.This is one of multiple admissions for patient. Pt. admitted for alcohol and heroin dependence. Substance Abuse History: Following information confirmed with Mr. Rice: - Smoking Cessation. Smoking history: Current every day smoker. Have you smoked in the past 12 months: Yes. Aproximately how many cigarettes per day: 20. Cigars Per Day: 0. Hx Chewing Tobacco Use: No. Initiated information on smoking cessation: Yes. 'Breaking Loose' booklet given: 08/17/17. - Substance & Tx. History. Hx Alcohol Use: Yes. Hx Substance Use: Yes. Substance Use Type : Alcohol, Heroin. Hx Substance Use Treatment: Yes (07/2017 [facility]). - Substances Abused. Alcohol. Route: Oral. Frequency: Daily. Amount used: 1 PINT OF VODKA. Age of first use: 15. Date of Last Use: 08/16/17. Heroin. Route: Inhalation. Frequency: Daily. Amount used: 2-3 BAGS. Age of first use: 18. Date of Last Use: 08/17/17 Medical History: Cardiac stent in 2014, Pacemake implanted in 2013, CHF, hypertension, hypercholesterolemia, HIV Psychiatric History: Pt. denies h/o psychiatric hospitalization, suicide attempt , and OPC. States he has been prescribed Mirtazapine for sleep by his PCP. Pharmacy claims reviewed and verified a prescription of mirtazapine 30mg on 04/30.Pt. requesting mirtazapine 15mg. Physical/Sexual Abuse/Trauma History: Denies. Mental Status Exam - Mental Status Exam Alert and Oriented to: Time, Place, Person Cognitive Function: Good Patient Appearance: Well Groomed Mood: Euthymic Affect: Mood Congruent Patient Behavior: Cooperative Speech Pattern: Appropriate Voice Loudness: Normal Thought Process: Goal Oriented Thought Disorder: Not Present Hallucinations: Denies Suicidal Ideation: Denies Homicidal Ideation: Denies Insight/Judgement: Poor Sleep: Poorly Appetite: Fair Muscle strength/Tone: Normal Gait/Station: Normal Psychiatric Findings - Problem List ([place] 1, 2,3) (1) Alcohol dependence with uncomplicated withdrawal Current Visit: Yes Status: Acute (2) Nicotine dependence Current Visit: Yes Status: Acute Qualifiers: Nicotine product type: cigarettes Substance use status: in withdrawal Qualified Code(s): F17.213 - Nicotine dependence, cigarettes, with withdrawal (3) Insomnia Current Visit: Yes Status: Acute (4) Opioid dependence with withdrawal Current Visit: Yes Status: Acute (5) Alcohol dependence Current Visit: Yes Status: Acute (6) Substance induced mood disorder Current Visit: No Status: Suspected - Initial Treatment Plan Initial Treatment Plan: Psychoeducation provided. Detoxification in progress. Mirtazapine 15mg qhs ordered. Pt. reports favorable effect from previously taking Mirtazapine in the past. Benefits and side effects discussed. Verbal consent given. Will continue to monitor.
--- NOTE | 2017-08-18 13:39 | EKG ---
Test Reason : Blood Pressure : / mmHG Vent. Rate : 058 BPM Atrial Rate : 058 BPM P-R Int : 158 ms QRS Dur : 092 ms QT Int : 482 ms P-R-T Axes : 025 -10 249 degrees QTc Int : 473 ms SINUS BRADYCARDIA ANTEROSEPTAL INFARCT (CITED ON OR BEFORE 10-JUL-2017) T WAVE ABNORMALITY, CONSIDER INFEROLATERAL ISCHEMIA ABNORMAL ECG WHEN COMPARED WITH ECG OF 17-AUG-2017 18:30, T WAVE INVERSION MORE EVIDENT IN LATERAL LEADS Confirmed by LATIA RODRÍGUEZ, LAURIE ([id number]) on 08/18/2017 1:39:27 PM Referred By: Confirmed By:LAURIE JEFFERY MD
--- NOTE | 2017-08-18 14:24 | PN ---
[facility] CIWA - CIWA Score Nausea/Vomitin-Mild Nausea/No Vomiting Muscle Tremors: 4-Moderate,w/Arms Extend Anxiety: 3 Agitation: 1-Slight > Activity Paroxysmal Sweats: 3 Orientation: 0-Oriented Tacttile Disturbances: 0-None Auditory Disturbances: 1-Very Mild Visual Disturbances: 1-Very Mild Sensitivity Headache: 0-None Present CIWA-Ar Total Score: 14 S COWS - Scale Resting Pulse: 0= [place] 80 or Below Sweatin=Flushed/Facial Moisture Restless Observation: 1= Difficult to Sit Still Pupil Size: 0= Normal to Room Light Bone or Joint Aches: 1= Mild Discomfort Runny Nose/ Eye Tearin= Nasal Congestion GI Upset > 30mins: 2= Nausea/Diarrhea Tremor Observation of Outstretched Hands: 2= Slight Tremor Visible Yawning Observation: 1= 1-2x During Session Anxiety or Irritability: 1=Feels Anxious/Irritable Goose Flesh Skin: 3=Piloerection COWS Score: 14 [facility] Progress Note (SOAP) Subjective: Interrupted sleep, anxious, body aches, chills Objective: 08/18/17 14:22 Vital Signs Temperature 97.3 F L 08/18/17 10:00 Pulse Rate 59 L 08/18/17 10:00 Respiratory Rate 18 08/18/17 10:00 Blood Pressure 119/80 08/18/17 10:00 O2 Sat by Pulse Oximetry (%) Laboratory Last Values WBC 3.5 K/mm3 (4.0-10.0) L 08/18/17 07:00 RBC 3.96 M/mm3 (4.00-5.60) L 08/18/17 07:00 Hgb 13.2 GM/dL (11.7-16.9) 08/18/17 07:00 Hct 40.6 % (35.4-49) 08/18/17 07:00 MCV 102.3 fl (80-96) H 08/18/17 07:00 MCH 33.3 pg (25.7-33.7) 08/18/17 07:00 MCHC 32.5 g/dl (32.0-35.9) 08/18/17 07:00 RDW 13.8 % (11.9-15.9) 08/18/17 07:00 Plt Count 92 K/MM3 (134-434) L 08/18/17 07:00 MPV 9.5 fl (7.5-11.1) 08/18/17 07:00 Sodium 144 mmol/L (136-145) 08/18/17 07:00 Potassium 3.6 mmol/L (3.5-5.1) 08/18/17 07:00 Chloride 108 mmol/L (98-107) H 08/18/17 07:00 Carbon Dioxide 31 mmol/L (21-32) 08/18/17 07:00 Anion Gap 5 (8-16) L 08/18/17 07:00 BUN 9 mg/dL (7-18) 08/18/17 07:00 Creatinine 0.9 mg/dL (0.7-1.3) 08/18/17 07:00 Creat Clearance w eGFR > 60 (>60) 08/18/17 07:00 Random Glucose 75 mg/dL (74-106) D 08/18/17 07:00 Calcium 8.0 mg/dL (8.5-10.1) L 08/18/17 07:00 Total Bilirubin 0.6 mg/dL (0.2-1.0) 08/18/17 07:00 AST 23 U/L (15-37) D 08/18/17 07:00 ALT 20 U/L (12-78) 08/18/17 07:00 Alkaline Phosphatase 77 U/L (45-117) 08/18/17 07:00 Total Protein 6.2 g/dl (6.4-8.2) L 08/18/17 07:00 Albumin 2.6 g/dl (3.4-5.0) L 08/18/17 07:00 Urine Color Noelle 08/17/17 19:42 Urine Appearance Clear 08/17/17 19:42 Urine pH 7.0 (5.0-8.0) D 08/17/17 19:42 Ur Specific [place] 1.025 (1.001-1.035) 08/17/17 19:42 Urine Protein 2+ (NEGATIVE) H 08/17/17 19:42 Urine Glucose (UA) Negative (NEGATIVE) 08/17/17 19:42 Urine Ketones Trace (NEGATIVE) H 08/17/17 19:42 Urine Blood Negative (NEGATIVE) 08/17/17 19:42 Urine Nitrite Negative (NEGATIVE) 08/17/17 19:42 Urine Bilirubin 2.0 (NEGATIVE) 08/17/17 19:42 Urine Urobilinogen 4.0 e.u/dl mg/dL (0.2-1.0) 08/17/17 19:42 Ur Leukocyte Esterase Negative (NEGATIVE) 08/17/17 19:42 Urine WBC (Auto) 3 /hpf (3-5) 08/17/17 19:42 Urine RBC (Auto) 13 /hpf (0-3) 08/17/17 19:42 Urine Bacteria Rare /hpf (NONE SEEN) 08/17/17 19:42 Urine Mucus Rare 08/17/17 19:42 RPR Titer Nonreactive (NONREACTIVE) 08/18/17 07:00 Labs noted Assessment: 08/18/17 14:23 AOx3 Ambulatory No s/s of distress withdrawal symptoms Plan: Continue detox increase fluids
[2017-08-18] MEDS: MIRTAZAPINE 15 MG TABLET (FP) PO SCH (22:21)
[2017-08-18] MEDS: THIAMINE HCL 100 MG TABLET (FP) PO SCH (22:21)
[2017-08-19] MEDS: chlordiazePOXIDE HCL 25 MG CAPSULE PO SCH ×3 (05:50→17:55)
[2017-08-19] MEDS: LISINOPRIL 5 MG TABLET (FP) PO SCH (10:15)
[2017-08-19] MEDS: CARVEDILOL 12.5 MG TABLET (FP) PO SCH ×2 (10:15→22:21)
[2017-08-19] MEDS: METHADONE HCL 5 MG TABLET (FOR DETOX USE ONLY) PO SCH (10:15)
[2017-08-19] MEDS: ASPIRIN 81 MG CHEWABLE TABLETS PO SCH (10:15)
[2017-08-19] MEDS: RILPIVIRINE HCL 25 MG TABLET PO SCH (10:15)
[2017-08-19] MEDS: ELVITEG/COB/EMTRI/TENOFO (STRIBILD) TABLET -NF PO SCH (10:15)
[2017-08-19] MEDS: FUROSEMIDE 40 MG TABLET (FP) PO SCH (10:16)
[2017-08-19] MEDS: CLOPIDOGREL BISULFATE 75 MG TABLET (FP) PO SCH (10:16)
[2017-08-19] MEDS: NICOTINE 21 MG/24 HOURS TOPICAL PATCH TD SCH (10:16)
[2017-08-19] MEDS: PRENATAL VITAMINS W/ FOLIC ACID TABLET (FP) PO SCH (10:16)
--- NOTE | 2017-08-19 15:06 | PN ---
[facility] CIWA - CIWA Score Nausea/Vomitin-Mild Nausea/No Vomiting Muscle Tremors: 2 Anxiety: 1-Mildly Anxious Agitation: 1-Slight > Activity Paroxysmal Sweats: 2 Orientation: 0-Oriented Tacttile Disturbances: 1-Very Mild Itch/Numbness Auditory Disturbances: 1-Very Mild Visual Disturbances: 1-Very Mild Sensitivity Headache: 1-Very Mild CIWA-Ar Total Score: 11 S COWS - Scale Resting Pulse: 0= [place] 80 or Below Sweatin= Chills/Flushing Restless Observation: 1= Difficult to Sit Still Pupil Size: 0= Normal to Room Light Bone or Joint Aches: 1= Mild Discomfort Runny Nose/ Eye Tearin= None GI Upset > 30mins: 2= Nausea/Diarrhea Tremor Observation of Outstretched Hands: 1= Tremor [place], Not Seen Yawning Observation: 2= >3x During Session Anxiety or Irritability: 1=Feels Anxious/Irritable Goose Flesh Skin: 3=Piloerection COWS Score: 12 S Progress Note (SOAP) Subjective: chills, interrupted sleep, anxious, body aches Objective: 08/19/17 15:06 Vital Signs Temperature 97.9 F 08/19/17 14:26 Pulse Rate 75 08/19/17 14:26 Respiratory Rate 18 08/19/17 14:26 Blood Pressure 94/70 08/19/17 14:26 O2 Sat by Pulse Oximetry (%) Laboratory Last Values WBC 3.5 K/mm3 (4.0-10.0) L 08/18/17 07:00 RBC 3.96 M/mm3 (4.00-5.60) L 08/18/17 07:00 Hgb 13.2 GM/dL (11.7-16.9) 08/18/17 07:00 Hct 40.6 % (35.4-49) 08/18/17 07:00 MCV 102.3 fl (80-96) H 08/18/17 07:00 MCH 33.3 pg (25.7-33.7) 08/18/17 07:00 MCHC 32.5 g/dl (32.0-35.9) 08/18/17 07:00 RDW 13.8 % (11.9-15.9) 08/18/17 07:00 Plt Count 92 K/MM3 (134-434) L 08/18/17 07:00 MPV 9.5 fl (7.5-11.1) 08/18/17 07:00 Sodium 144 mmol/L (136-145) 08/18/17 07:00 Potassium 3.6 mmol/L (3.5-5.1) 08/18/17 07:00 Chloride 108 mmol/L (98-107) H 08/18/17 07:00 Carbon Dioxide 31 mmol/L (21-32) 08/18/17 07:00 Anion Gap 5 (8-16) L 08/18/17 07:00 BUN 9 mg/dL (7-18) 08/18/17 07:00 Creatinine 0.9 mg/dL (0.7-1.3) 08/18/17 07:00 Creat Clearance w eGFR > 60 (>60) 08/18/17 07:00 Random Glucose 75 mg/dL (74-106) D 08/18/17 07:00 Calcium 8.0 mg/dL (8.5-10.1) L 08/18/17 07:00 Total Bilirubin 0.6 mg/dL (0.2-1.0) 08/18/17 07:00 AST 23 U/L (15-37) D 08/18/17 07:00 ALT 20 U/L (12-78) 08/18/17 07:00 Alkaline Phosphatase 77 U/L (45-117) 08/18/17 07:00 Total Protein 6.2 g/dl (6.4-8.2) L 08/18/17 07:00 Albumin 2.6 g/dl (3.4-5.0) L 08/18/17 07:00 Urine Color Noelle 08/17/17 19:42 Urine Appearance Clear 08/17/17 19:42 Urine pH 7.0 (5.0-8.0) D 08/17/17 19:42 Ur Specific [place] 1.025 (1.001-1.035) 08/17/17 19:42 Urine Protein 2+ (NEGATIVE) H 08/17/17 19:42 Urine Glucose (UA) Negative (NEGATIVE) 08/17/17 19:42 Urine Ketones Trace (NEGATIVE) H 08/17/17 19:42 Urine Blood Negative (NEGATIVE) 08/17/17 19:42 Urine Nitrite Negative (NEGATIVE) 08/17/17 19:42 Urine Bilirubin 2.0 (NEGATIVE) 08/17/17 19:42 Urine Urobilinogen 4.0 e.u/dl mg/dL (0.2-1.0) 08/17/17 19:42 Ur Leukocyte Esterase Negative (NEGATIVE) 08/17/17 19:42 Urine WBC (Auto) 3 /hpf (3-5) 08/17/17 19:42 Urine RBC (Auto) 13 /hpf (0-3) 08/17/17 19:42 Urine Bacteria Rare /hpf (NONE SEEN) 08/17/17 19:42 Urine Mucus Rare 08/17/17 19:42 RPR Titer Nonreactive (NONREACTIVE) 08/18/17 07:00 08/19/17 15:09 Labs noted, repeat U/A 08/19/17 15:11 Assessment: 08/19/17 15:10 AOx 3 Ambulating no distress withdrawal symptoms Plan: Continue detox Repeat U/A
[2017-08-19] MEDS: chlordiazePOXIDE 5 MG CAPSULE PO SCH (22:21)
[2017-08-19] MEDS: MIRTAZAPINE 15 MG TABLET (FP) PO SCH (22:21)
[2017-08-19] MEDS: THIAMINE HCL 100 MG TABLET (FP) PO SCH (22:21)
[2017-08-20] MEDS: chlordiazePOXIDE 5 MG CAPSULE PO SCH ×3 (06:08→17:34)
--- NOTE | 2017-08-20 09:34 | PN ---
[facility] Progress Note (SOAP) Subjective: sweats body aches interrupted sleep agitation Objective: 08/20/17 09:32 Vital Signs Temperature 98.1 F 08/20/17 07:32 Pulse Rate 67 08/20/17 07:32 Respiratory Rate 18 08/20/17 07:32 Blood Pressure 102/67 08/20/17 07:32 O2 Sat by Pulse Oximetry (%) aaox3 ambulating no acute distress Assessment: 08/20/17 09:33 withdrawal sx Plan: continue detox increase fluids
[2017-08-20] MEDS: CLOPIDOGREL BISULFATE 75 MG TABLET (FP) PO SCH (10:15)
[2017-08-20] MEDS: METHADONE HCL 5 MG TABLET (FOR DETOX USE ONLY) PO SCH (10:15)
[2017-08-20] MEDS: PRENATAL VITAMINS W/ FOLIC ACID TABLET (FP) PO SCH (10:15)
[2017-08-20] MEDS: FUROSEMIDE 40 MG TABLET (FP) PO SCH (10:15)
[2017-08-20] MEDS: CARVEDILOL 12.5 MG TABLET (FP) PO SCH ×2 (10:15→22:24)
[2017-08-20] MEDS: ASPIRIN 81 MG CHEWABLE TABLETS PO SCH (10:15)
[2017-08-20] MEDS: RILPIVIRINE HCL 25 MG TABLET PO SCH (10:16)
[2017-08-20] MEDS: LISINOPRIL 5 MG TABLET (FP) PO SCH (10:17)
[2017-08-20] MEDS: ELVITEG/COB/EMTRI/TENOFO (STRIBILD) TABLET -NF PO SCH (10:17)
[2017-08-20] MEDS: NICOTINE 21 MG/24 HOURS TOPICAL PATCH TD SCH (10:17)
[2017-08-20] MEDS: chlordiazePOXIDE HCL 10 MG CAPSULE PO SCH (22:24)
[2017-08-20] MEDS: THIAMINE HCL 100 MG TABLET (FP) PO SCH (22:24)
[2017-08-20] MEDS: MIRTAZAPINE 15 MG TABLET (FP) PO SCH (22:24)
[2017-08-21] MEDS: chlordiazePOXIDE HCL 10 MG CAPSULE PO SCH ×2 (06:15→10:20)
[2017-08-21] MEDS ORDERED: METHADONE HCL 10 MG TABLET (FOR DETOX USE ONLY) PO SCH (10:00)
[2017-08-21] MEDS: CARVEDILOL 12.5 MG TABLET (FP) PO SCH (10:20)
[2017-08-21] MEDS: LISINOPRIL 5 MG TABLET (FP) PO SCH (10:20)
[2017-08-21] MEDS: CLOPIDOGREL BISULFATE 75 MG TABLET (FP) PO SCH (10:20)
[2017-08-21] MEDS: ASPIRIN 81 MG CHEWABLE TABLETS PO SCH (10:20)
[2017-08-21] MEDS: ELVITEG/COB/EMTRI/TENOFO (STRIBILD) TABLET -NF PO SCH (10:21)
[2017-08-21] MEDS: NICOTINE 21 MG/24 HOURS TOPICAL PATCH TD SCH (10:21)
[2017-08-21] MEDS: RILPIVIRINE HCL 25 MG TABLET PO SCH (10:21)
[2017-08-21] MEDS: PRENATAL VITAMINS W/ FOLIC ACID TABLET (FP) PO SCH (10:21)
[2017-08-21] MEDS: FUROSEMIDE 40 MG TABLET (FP) PO SCH (10:21)
[2017-08-21 10:26] VITALS: BP 121/80; PULSE 76; TEMP 100
--- NOTE | 2017-08-21 11:38 | DS ---
[facility] Detox Discharge Summary Admission Date: 08/17/17 Discharge Date: 08/21/17 - Physical Exam Results Vital Signs: Vital Signs Temperature 100.0 F H 08/21/17 10:26 Pulse Rate 76 08/21/17 10:26 Respiratory Rate 16 08/21/17 10:26 Blood Pressure 121/80 08/21/17 10:26 O2 Sat by Pulse Oximetry (%) Pertinent Admission Physical Exam Findings: withdrawal symptoms Laboratory Last Values WBC 3.5 K/mm3 (4.0-10.0) L 08/18/17 07:00 RBC 3.96 M/mm3 (4.00-5.60) L 08/18/17 07:00 Hgb 13.2 GM/dL (11.7-16.9) 08/18/17 07:00 Hct 40.6 % (35.4-49) 08/18/17 07:00 MCV 102.3 fl (80-96) H 08/18/17 07:00 MCH 33.3 pg (25.7-33.7) 08/18/17 07:00 MCHC 32.5 g/dl (32.0-35.9) 08/18/17 07:00 RDW 13.8 % (11.9-15.9) 08/18/17 07:00 Plt Count 92 K/MM3 (134-434) L 08/18/17 07:00 MPV 9.5 fl (7.5-11.1) 08/18/17 07:00 Sodium 144 mmol/L (136-145) 08/18/17 07:00 Potassium 3.6 mmol/L (3.5-5.1) 08/18/17 07:00 Chloride 108 mmol/L (98-107) H 08/18/17 07:00 Carbon Dioxide 31 mmol/L (21-32) 08/18/17 07:00 Anion Gap 5 (8-16) L 08/18/17 07:00 BUN 9 mg/dL (7-18) 08/18/17 07:00 Creatinine 0.9 mg/dL (0.7-1.3) 08/18/17 07:00 Creat Clearance w eGFR > 60 (>60) 08/18/17 07:00 Random Glucose 75 mg/dL (74-106) D 08/18/17 07:00 Calcium 8.0 mg/dL (8.5-10.1) L 08/18/17 07:00 Total Bilirubin 0.6 mg/dL (0.2-1.0) 08/18/17 07:00 AST 23 U/L (15-37) D 08/18/17 07:00 ALT 20 U/L (12-78) 08/18/17 07:00 Alkaline Phosphatase 77 U/L (45-117) 08/18/17 07:00 Total Protein 6.2 g/dl (6.4-8.2) L 08/18/17 07:00 Albumin 2.6 g/dl (3.4-5.0) L 08/18/17 07:00 Urine Color Noelle 08/17/17 19:42 Urine Appearance Clear 08/17/17 19:42 Urine pH 7.0 (5.0-8.0) D 08/17/17 19:42 Ur Specific [place] 1.025 (1.001-1.035) 08/17/17 19:42 Urine Protein 2+ (NEGATIVE) H 08/17/17 19:42 Urine Glucose (UA) Negative (NEGATIVE) 08/17/17 19:42 Urine Ketones Trace (NEGATIVE) H 08/17/17 19:42 Urine Blood Negative (NEGATIVE) 08/17/17 19:42 Urine Nitrite Negative (NEGATIVE) 08/17/17 19:42 Urine Bilirubin 2.0 (NEGATIVE) 08/17/17 19:42 Urine Urobilinogen 4.0 e.u/dl mg/dL (0.2-1.0) 08/17/17 19:42 Ur Leukocyte Esterase Negative (NEGATIVE) 08/17/17 19:42 Urine WBC (Auto) 3 /hpf (3-5) 08/17/17 19:42 Urine RBC (Auto) 13 /hpf (0-3) 08/17/17 19:42 Urine Bacteria Rare /hpf (NONE SEEN) 08/17/17 19:42 Urine Mucus Rare 08/17/17 19:42 RPR Titer Nonreactive (NONREACTIVE) 08/18/17 07:00 - Treatment Hospital Course: Detox Protocol Followed, Detoxed Safely, Responded well, Discharged Condition Good, Rehab Referral Accepted Patient has Accepted a Rehab Referral to: [facility] - Medication Discharge Medications: Ambulatory Orders Aspirin [ASA -] 81 mg PO DAILY 10/25/14 Clopidogrel Bisulfate [Clopidogrel] 75 mg PO DAILY 10/25/14 Lisinopril [Prinivil -] 2.5 mg PO DAILY 10/25/14 Pantoprazole Sodium [Protonix] 40 mg PO DAILY 10/25/14 Atorvastatin Calcium 40 mg PO HS 03/18/15 Carvedilol [Coreg -] 12.5 mg PO BID 03/18/15 Furosemide [Lasix -] 40 mg PO DAILY 03/18/15 Elviteg/Cob/Emtri/Tenofo Disop [Stribild Tablet] 1 each PO DAILY 10/22/16 Hydralazine HCl [Apresoline -] 25 mg PO BID 10/22/16 Rilpivirine HCl [Edurant] 25 mg PO DAILY 10/22/16 Mirtazapine [Remeron -] 15 mg PO HS 08/17/17 - Diagnosis (1) Alcohol dependence with uncomplicated withdrawal Status: Acute (2) Insomnia Status: Acute (3) Nicotine dependence Status: Chronic Qualifiers: Nicotine product type: cigarettes Substance use status: in withdrawal Qualified Code(s): F17.213 - Nicotine dependence, cigarettes, with withdrawal (4) Opioid dependence with withdrawal Status: Acute (5) Weight loss Status: Acute (6) HIV disease Status: Chronic (7) HTN (hypertension) Status: Chronic Qualifiers: Hypertension type: essential hypertension Qualified Code(s): I10 - Essential (primary) hypertension (8) Substance induced mood disorder Status: Suspected - AMA Did Patient Leave Against Medical Advice: No
[2017-08-22] MEDS ORDERED: METHADONE HCL 5 MG TABLET (FOR DETOX USE ONLY) PO SCH (06:00)
== END 2017-08-21 10:35 | disposition home or self-care (01) | DRG 773 ==
LOC: YASAS 12:30 → Y6N 16:50
PROVIDERS: ADMIT Internal Medicine; ATTEND Internal Medicine
PROC: HZ2ZZZZ Detoxification Services for Substance Abuse Treatment (ICD-10-PCS; principal; 2017-08-17)
DX: F11.23 Opioid dependence with withdrawal (principal); F10.230 Alcohol dependence with withdrawal, uncomplicated; F17.213 Nicotine dependence, cigarettes, with withdrawal; F19.24 Other psychoactive substance dependence with psychoactive substance-induced mood disorder; F34.1 Dysthymic disorder; I10 Essential (primary) hypertension; I50.9 Heart failure, unspecified; B20 Human immunodeficiency virus [HIV] disease; G47.00 Insomnia, unspecified; E78.00 Pure hypercholesterolemia, unspecified; R76.11 Nonspecific reaction to tuberculin skin test without active tuberculosis; Z95.0 Presence of cardiac pacemaker; Z95.5 Presence of coronary angioplasty implant and graft; Z91.013 Allergy to seafood; Z87.898 Personal history of other specified conditions
CPT/HCPCS: 36415; 80053; 81003; 81015; 85027; 86593; 93005; 93010

== ENCOUNTER 2018-02-15 12:37 | Inpatient (IN) | payer OTHER ==
[2018-02-15 13:01] VITALS: BMI 20.3
--- NOTE | 2018-02-15 16:30 | HP ---
CIWA Score - CIWA Score Nausea/Vomitin-No Nausea/No Vomiting Muscle Tremors: 2 Anxiety: 2 Agitation: 3 Paroxysmal Sweats: 2 Orientation: 1-Uncertain about Date (no distress) Tacttile Disturbances: 0-None Auditory Disturbances: 0-None Visual Disturbances: 2-Mild Sensitivity Headache: 0-None Present CIWA-Ar Total Score: 12 Admission ROS BHS - HPI Chief Complaint: alcohol withdrawal sx Allergies/Adverse Reactions: Allergies Allergy/AdvReac Type Severity Reaction Status Date / Time shellfish derived Allergy Mild Hives Verified 09/28/17 17:06 No Known Drug Allergies Allergy Verified 09/28/17 17:06 History of Present Illness: 52 yo male with hx of nicotine and alcohol dependence is here seeking detox, this is one multiple admissions to [facility]. PMHX: HIV+, CHF, hx STENT, HTN, hypelipidemia, insomnia, depression. Reports was at [facility] about two weeks ago as a result for fall secondary to intoxication and four days ago because the pacemaker was making a noise. Denies suicidal / homicidal ideation. Denies hx of seizures or blackouts. Longest period of sobriety 1 year. Exam Limitations: No Limitations - Ebola screening Have you traveled outside of the country in the last 21 days: No Have you had contact with anyone from an Ebola affected area: No Have you been sick,other than usual withdrawal symptoms: No Do you have a fever: No - Review of Systems Constitutional: Chills, Diaphoresis (20 lbs), Loss of Appetite, Changes in sleep , Unintentional Wgt. Loss EENT: reports: Dental Problems (missing teeth) Respiratory: reports: No Symptoms reported Cardiac: reports: No Symptoms Reported GI: reports: Poor Appetite, Poor Fluid Intake : reports: No Symptoms Reported Musculoskeletal: reports: Joint Pain (left knee) Integumentary: reports: No Symptoms Reported Neuro: reports: No Symptoms reported Endocrine: reports: Increased Thirst Hematology: reports: No Symptoms Reported Psychiatric: reports: Orientated x3, Depressed Other Systems: Reviewed and Negative Patient History - Patient Medical History Hx Anemia: No Hx Asthma: No Hx Chronic Obstructive Pulmonary Disease (COPD): No Hx Cancer: No Hx Cardiac Disorders: Yes (STENT AND PACE MAKER INSERTION IN 2014) Hx Congestive Heart Failure: Yes Hx Hypertension: Yes (ON MED) Hx Hypercholesterolemia: Yes ("IT'S UNDER CONTROL"--NO MEDS) Hx Pacemaker: Yes (07/2015) HX Cerebrovascular Accident: No Hx Seizures: No Hx Dementia: No Hx Diabetes: No Hx Gastrointestinal Disorders: No Hx Liver Disease: No Hx Genitourinary Disorders: No Hx Sexually Transmitted Disorders: Yes (gonorrhea ) Hx Renal Disease (ESRD): No Hx Thyroid Disease: No Hx Human Immunodeficiency Virus (HIV): Yes (SINCE 1994-ON MEDS; ORAL THRUSH AND PCP PNEUMONIA IN THE PAST.) Hx Hepatitis C: No Hx Depression: Yes Hx Suicide Attempt: No (DENIES PAST AND PRESENT S/I TODAY) Hx Bipolar Disorder: No (HX INSOMNIA) Hx Schizophrenia: No - Patient Surgical History Past Surgical History: Yes Hx Neurologic Surgery: No Hx Cataract Extraction: No Hx Cardiac Surgery: Yes (Cardiac cath with stents in 07/15) Hx Lung Surgery: No Hx Breast Surgery: No Hx Breast Biopsy: No Hx Abdominal Surgery: No Hx Appendectomy: No Hx Cholecystectomy: No Hx Genitourinary Surgery: No Hx Section: No Hx Orthopedic Surgery: No Other Surgical History: pacemaker implanted in 2013 Anesthesia Reaction: No - PPD History Previous Implant?: No Documented Results: Negative w/proof Results: CXR(-) 07/11/17 PPD to be Administered?: No - Smoking Cessation Smoking history: Current every day smoker Have you smoked in the past 12 months: Yes Aproximately how many cigarettes per day: 20 Cigars Per Day: 0 Hx Chewing Tobacco Use: No Initiated information on smoking cessation: Yes 'Breaking Loose' booklet given: 02/15/18 - Substance & Tx. History Hx Alcohol Use: Yes Hx Substance Use: Yes Substance Use Type: Alcohol Hx Substance Use Treatment: Yes ([facility] 09/28/17 -) - Substances Abused Alcohol Route: Oral Frequency: Daily Amount used: 1 pint vodka Age of first use: 16 Date of Last Use: 02/14/18 Family Disease History - Family Disease History Family Disease History: Other: Father, Mother (alive and well ) Admission Physical Exam S - Vital Signs Vital Signs: Vital Signs - 24 hr 02/15/18 12:59 Temperature 99 F Pulse Rate 83 Respiratory 18 Rate Blood Pressure 129/70 - Physical General Appearance: Yes: Disheveled, Mild Distress, Alcohol on Breath, Thin, Sweating, Anxious HEENTM: Yes: EOMI, Hearing grossly Normal, Normal ENT Inspection, Normocephalic , Normal Voice, FILOMENA, Pharynx Normal, Tm's normal, Other (poor dentition) Respiratory: Yes: Chest Non-Tender, Lungs Clear, Normal Breath Sounds, No Respiratory Distress, No Accessory Muscle Use Neck: Yes: Within Normal Limits Breast: Yes: Breast Exam Deferred Cardiology: Yes: Regular Rhythm, Regular Rate Abdominal: Yes: Normal Bowel Sounds, Non Tender, Flat, Soft Genitourinary: Yes: Within Normal Limits Back: Yes: Normal Inspection Musculoskeletal: Yes: full range of Motion, Gait Steady, Pelvis Stable, Other ( left knee pain) Extremities: Yes: Normal Capillary Refill, Normal Inspection, Normal Range of Motion, Non-Tender Neurological: Yes: obstetrician II-XII NML intact, Fully Oriented, Motor Strength 5/5, Normal Response, Depressed Affect Integumentary: Yes: Within Normal Limits, Normal Color, Warm, Diaphoresis, Petechiae Lymphatic: Yes: Within Normal Limits - Diagnostic (1) Alcohol dependence with uncomplicated withdrawal Current Visit: Yes Status: Acute (2) Nicotine dependence Current Visit: Yes Status: Chronic Qualifiers: Nicotine product type: cigarettes Substance use status: in withdrawal Qualified Code(s): F17.213 - Nicotine dependence, cigarettes, with withdrawal (3) Weight loss Current Visit: Yes Status: Acute (4) CHF (congestive heart failure) Current Visit: Yes Status: Chronic (5) Depression (emotion) Current Visit: Yes Status: Acute Qualifiers: Depression Type: unspecified Qualified Code(s): F32.9 - Major depressive disorder, single episode, unspecified (6) GERD (gastroesophageal reflux disease) Current Visit: Yes Status: Chronic Qualifiers: Esophagitis presence: without esophagitis Qualified Code(s): K21.9 - Gastro -esophageal reflux disease without esophagitis (7) H/O heart artery stent Current Visit: Yes Status: Chronic (8) HIV disease Current Visit: Yes Status: Chronic Comment: no medication upon admission (9) HTN (hypertension) Current Visit: Yes Status: Chronic Qualifiers: Hypertension type: essential hypertension Qualified Code(s): I10 - Essential (primary) hypertension (10) Hyperlipidemia Current Visit: Yes Status: Chronic Qualifiers: Hyperlipidemia type: unspecified Qualified Code(s): E78.5 - Hyperlipidemia , unspecified (11) Peripheral neuropathy Current Visit: Yes Status: Chronic Qualifiers: Peripheral neuropathy type: polyneuropathy, unspecified Qualified Code(s): G62.9 - Polyneuropathy, unspecified Cleared for Admission [facility] - Detox or Rehab [facility] Level of Care: Medically Managed Detox Regimen/Protocol: Librium [facility] Breath Alcohol Content Breath Alcohol Content: 0.073 Urine Drug Screen - Results Drug Screen Negative: No Urine Drug Screen Results: BZO-Benzodiazepines
[2018-02-15] MEDS ORDERED: MAG HYDROX/AL HYDROX/SIMETH 30 ML UNIT-DOSE CUP PO PRN (16:47)
[2018-02-15] MEDS ORDERED: P-EPHED 60MG/TRIPROLIDI 2.5MG TABLET PO PRN (16:47)
[2018-02-15] MEDS ORDERED: guaiFENesin/D-METHORPHAN HB 10 ML UNIT-DOSE CUPS PO PRN (16:47)
[2018-02-15] MEDS ORDERED: IBUPROFEN 400 MG TABLET (FP) PO PRN (16:47)
[2018-02-15] MEDS ORDERED: chlordiazePOXIDE HCL 25 MG CAPSULE PO PRN (16:47)
[2018-02-15] MEDS ORDERED: LOPERAMIDE HCL 2 MG CAPSULE PO PRN (16:47)
[2018-02-15] MEDS ORDERED: MAGNESIUM CITRATE 300 ML BOTTLE PO PRN (16:47)
[2018-02-15] MEDS ORDERED: NICOTINE POLACRILEX 2 MG GUM BC PRN (16:47)
[2018-02-15] MEDS ORDERED: MENTHOL/PHENOL 1 EACH UD MM PRN (16:47)
[2018-02-15] MEDS ORDERED: MAGNESIUM HYDROX 2400MG/30ML ORAL SUSPENSION 30 ML CUP PO PRN (16:47)
[2018-02-15] MEDS ORDERED: ACETAMINOPHEN 325 MG TABLET (FP) PO PRN (16:47)
[2018-02-15] MEDS ORDERED: chlordiazePOXIDE HCL 25 MG CAPSULE PO ONE (18:00)
[2018-02-15] MEDS ORDERED: MELATONIN 5 MG TABLETS PO PRN (22:00)
[2018-02-15] MEDS: chlordiazePOXIDE HCL 25 MG CAPSULE PO SCH (22:33)
[2018-02-15] MEDS: THIAMINE HCL 100 MG TABLET (FP) PO SCH (22:33)
[2018-02-15] MEDS: hydrALAZINE HCL 25 MG TABLET (FP) PO SCH (22:33)
[2018-02-15] MEDS: ATORVASTATIN CA 40 MG TABLET (FP) PO SCH (22:34)
[2018-02-15] MEDS: CARVEDILOL 12.5 MG TABLET (FP) PO SCH (22:34)
[2018-02-16] MEDS: chlordiazePOXIDE HCL 25 MG CAPSULE PO SCH ×4 (05:50→22:34)
--- NOTE | 2018-02-16 07:37 | CONSULT ---
[facility] Psychiatric Consult - Data Date of interview: 02/16/18 Admission source: [facility] Identifying data: This is 52 years old male, single father of one, living alone , unemployed, on SSD, with no psychiatric hispitalization history, with multiple medical issues history, with history of nicotine and alcohol dependence is here seeking detox, this is one of the multiple admissions to [facility]. Substance Abuse History: - Smoking Cessation. Smoking history: Current every day smoker. Have you smoked in the past 12 months: Yes. Aproximately how many cigarettes per day: 20. Cigars Per Day: 0. Hx Chewing Tobacco Use: No. Initiated information on smoking cessation: Yes. 'Breaking Loose' booklet given : 02/15/18. - Substance & Tx. History. Hx Alcohol Use: Yes. Hx Substance Use : Yes. Substance Use Type: Alcohol. Hx Substance Use Treatment: Yes ([facility] 09/28 -). - Substances Abused. Alcohol. Route: Oral. Frequency: Daily. Amount used: 1 pint vodka. Age of first use: 16. Date of Last Use: Medical History: Eeght loss history, CHF, GERD, Cardiac Stent placement history, HIV+, HTN, Hyperlipidemia. Psychiatric History: Patient reports history of depression, reports taking prior to admission for depression andinsomni: Remeron 15mg po qhs Physical/Sexual Abuse/Trauma History: Denies Additional Comment: Remeron 15mg po qhs Mental Status Exam - Mental Status Exam Alert and Oriented to: Person Cognitive Function: Fair Patient Appearance: Unkempt Mood: Sad Affect: Flat Patient Behavior: Sedated Speech Pattern: Delayed Voice Loudness: Mildly Soft/Quiet Thought Process: Circumstantial Thought Disorder: Being Controlled Hallucinations: Denies Suicidal Ideation: Denies Homicidal Ideation: Denies Insight/Judgement: Fair Sleep: Difficulty falling asleep Muscle strength/Tone: Mild Hypotonicity Gait/Station: Shuffling Additional Comments: Remeron 15mg po qhs Psychiatric Findings - Problem List ([place] 1, 2,3) (1) Alcohol dependence with uncomplicated withdrawal Current Visit: Yes Status: Acute (2) Weight loss Current Visit: Yes Status: Acute (3) CHF (congestive heart failure) Current Visit: Yes Status: Chronic (4) GERD (gastroesophageal reflux disease) Current Visit: Yes Status: Chronic Qualifiers: Esophagitis presence: without esophagitis Qualified Code(s): K21.9 - Gastro -esophageal reflux disease without esophagitis (5) HIV disease Current Visit: Yes Status: Chronic Comment: no medication upon admission (6) HTN (hypertension) Current Visit: Yes Status: Chronic Qualifiers: Hypertension type: essential hypertension Qualified Code(s): I10 - Essential (primary) hypertension (7) Hyperlipidemia Current Visit: Yes Status: Chronic Qualifiers: Hyperlipidemia type: unspecified Qualified Code(s): E78.5 - Hyperlipidemia , unspecified (8) Peripheral neuropathy Current Visit: Yes Status: Chronic Qualifiers: Peripheral neuropathy type: polyneuropathy, unspecified Qualified Code(s): G62.9 - Polyneuropathy, unspecified (9) Cannabis dependence Current Visit: No Status: Acute (10) Mood disorder Current Visit: No Status: Acute (11) Opioid dependence with withdrawal Current Visit: No Status: Acute (12) Substance induced mood disorder Current Visit: No Status: Acute (13) S/P arterial stent Current Visit: No Status: Chronic (14) Status post myocardial infarction Current Visit: No Status: Chronic - Initial Treatment Plan Initial Treatment Plan: Remeron 15mg po qhs
[2018-02-16 09:49] LABS: HEMATOCRIT 35.6 % (35.4-49); HEMOGLOBIN 12.1 GM/dL (11.7-16.9); MCHC 34.1 g/dl (32.0-35.9); MEAN CELL VOLUME 102.7 fl (80-96); MEAN PLT VOLUME 9.6 fl (7.5-11.1); PLATELET COUNT 38 K/MM3 (134-434); RBC 3.47 M/mm3 (4.00-5.60); RDW 13.3 % (11.9-15.9); WHITE BLOOD COUNT 2.5 K/mm3 (4.0-10.0)
[2018-02-16 09:56] LABS: CHLORIDE 104 mmol/L (98-107); POTASSIUM 3.4 mmol/L (3.5-5.1); SODIUM 143 mmol/L (136-145)
[2018-02-16] MEDS ORDERED: CLOPIDOGREL BISULFATE 75 MG TABLET (FP) PO SCH (10:00)
[2018-02-16] MEDS ORDERED: PANTOPRAZOLE 40 MG TABLET (FP) PO SCH (10:00)
[2018-02-16 10:12] LABS: ALBUMIN 2.7 g/dl (3.4-5.0); ALK PHOS 101 U/L (45-117); ANION GAP 6 (8-16); BILIRUBIN,TOTAL 1.8 mg/dL (0.2-1.0); BLOOD UREA NITROGEN 8 mg/dL (7-18); CALCIUM 7.7 mg/dL (8.5-10.1); CO2 33 mmol/L (21-32); CREATININE 0.9 mg/dL (0.7-1.3); GLUCOSE,RANDOM 72 mg/dL (74-106); SGOT/AST 276 U/L (15-37); SGPT/ALT 57 U/L (12-78); TOT PROT 6.7 g/dl (6.4-8.2)
--- NOTE | 2018-02-16 10:31 | PN ---
[facility] CIWA - CIWA Score Nausea/Vomitin-Mild Nausea/No Vomiting Muscle Tremors: 4-Moderate,w/Arms Extend Anxiety: 3 Agitation: 3 Paroxysmal Sweats: 1-Minimal Palms Moist Orientation: 0-Oriented Tacttile Disturbances: 0-None Auditory Disturbances: 0-None Visual Disturbances: 0-None Headache: 0-None Present CIWA-Ar Total Score: 12 BHS Progress Note (SOAP) Subjective: sweat tremor restlessness trouble sleep at night none adherence with ART medication no ART medications upon admission Objective: 02/16/18 10:35 Vital Signs Temperature 97.1 F L 02/16/18 09:16 Pulse Rate 64 02/16/18 09:16 Respiratory Rate 18 02/16/18 09:16 Blood Pressure 106/71 02/16/18 09:16 O2 Sat by Pulse Oximetry (%) Laboratory Last Values WBC 2.5 K/mm3 (4.0-10.0) L 02/16/18 07:00 RBC 3.47 M/mm3 (4.00-5.60) L 02/16/18 07:00 Hgb 12.1 GM/dL (11.7-16.9) 02/16/18 07:00 Hct 35.6 % (35.4-49) 02/16/18 07:00 MCV 102.7 fl (80-96) H 02/16/18 07:00 MCH 35.0 pg (25.7-33.7) H 02/16/18 07:00 MCHC 34.1 g/dl (32.0-35.9) 02/16/18 07:00 RDW 13.3 % (11.9-15.9) 02/16/18 07:00 Plt Count 38 K/MM3 (134-434) L D 02/16/18 07:00 MPV 9.6 fl (7.5-11.1) 02/16/18 07:00 Sodium 143 mmol/L (136-145) 02/16/18 07:00 Potassium 3.4 mmol/L (3.5-5.1) L 02/16/18 07:00 Chloride 104 mmol/L (98-107) 02/16/18 07:00 Carbon Dioxide 33 mmol/L (21-32) H 02/16/18 07:00 Anion Gap 6 (8-16) L 02/16/18 07:00 BUN 8 mg/dL (7-18) 02/16/18 07:00 Creatinine 0.9 mg/dL (0.7-1.3) 02/16/18 07:00 Creat Clearance w eGFR > 60 (>60) 02/16/18 07:00 Random Glucose 72 mg/dL (74-106) L 02/16/18 07:00 Calcium 7.7 mg/dL (8.5-10.1) L 02/16/18 07:00 Total Bilirubin 1.8 mg/dL (0.2-1.0) H 02/16/18 07:00 AST 276 U/L (15-37) H D 02/16/18 07:00 ALT 57 U/L (12-78) D 02/16/18 07:00 Alkaline Phosphatase 101 U/L (45-117) 02/16/18 07:00 Total Protein 6.7 g/dl (6.4-8.2) 02/16/18 07:00 Albumin 2.7 g/dl (3.4-5.0) L 02/16/18 07:00 lab noted repeat K+ Assessment: 02/16/18 10:35 withdrawal sx HIV Plan: continue detox encourage the patient obtain ART medications from private infectious disease provider and primary [facility] health teaching on importance of ART adherence
[2018-02-16] MEDS: ASPIRIN 81 MG CHEWABLE TABLETS PO SCH (10:38)
[2018-02-16] MEDS: PRENATAL VITAMINS W/ FOLIC ACID TABLET (FP) PO SCH (10:38)
[2018-02-16] MEDS: hydrALAZINE HCL 25 MG TABLET (FP) PO SCH ×2 (10:38→22:34)
[2018-02-16] MEDS: CARVEDILOL 12.5 MG TABLET (FP) PO SCH ×2 (10:38→22:33)
[2018-02-16] MEDS: NICOTINE 14 MG/24 HOURS TOPICAL PATCH TD SCH (10:39)
[2018-02-16] MEDS: FUROSEMIDE 40 MG TABLET (FP) PO SCH (10:39)
[2018-02-16] MEDS: LISINOPRIL 5 MG TABLET (FP) PO SCH (10:39)
--- NOTE | 2018-02-16 12:48 | EKG ---
Test Reason : Blood Pressure : / mmHG Vent. Rate : 069 BPM Atrial Rate : 069 BPM P-R Int : 160 ms QRS Dur : 096 ms QT Int : 470 ms P-R-T Axes : 072 -29 202 degrees QTc Int : 503 ms NORMAL SINUS RHYTHM BIATRIAL ENLARGEMENT LEFT VENTRICULAR HYPERTROPHY ANTEROSEPTAL INFARCT (CITED ON OR BEFORE 10-JUL-2017) T WAVE ABNORMALITY, CONSIDER INFEROLATERAL ISCHEMIA PROLONGED QT ABNORMAL ECG WHEN COMPARED WITH ECG OF 29-SEP-2017 08:56, T WAVE INVERSION LESS EVIDENT IN INFERIOR LEADS Confirmed by LAURIE JEFFERY MD ([id number]) on 02/16/2018 12:47:37 PM Referred By: Confirmed By:LAURIE JEFFERY MD
[2018-02-16 17:31] LABS: URINE APPEARANCE SLCLOUDY; URINE BILIRUBIN NEGATIVE (<2.0 mg/dL); URINE COLOR AMBER; URINE GLUCOSE (UA) NEGATIVE (NEGATIVE); URINE KETONE NEGATIVE (NEGATIVE); URINE LEUK ESTERASE NEGATIVE (NEGATIVE); URINE NITRITE NEGATIVE (NEGATIVE); URINE UROBILINOGEN 4.0 E.U/dl mg/dL (0.2-1.0)
[2018-02-16 17:36] LABS: URINE PROTEIN 1+ (NEGATIVE)
[2018-02-16 17:38] LABS: URINE HYALINE CAST 65 /lpf; URINE MUCUS FEW
[2018-02-16] MEDS: THIAMINE HCL 100 MG TABLET (FP) PO SCH (22:33)
[2018-02-16] MEDS: MIRTAZAPINE 15 MG TABLET (FP) PO SCH (22:33)
[2018-02-16] MEDS: ATORVASTATIN CA 40 MG TABLET (FP) PO SCH (22:34)
[2018-02-17] MEDS: chlordiazePOXIDE HCL 25 MG CAPSULE PO SCH ×3 (06:36→17:37)
--- NOTE | 2018-02-17 08:53 | PN ---
[facility] CIWA - CIWA Score Nausea/Vomitin-No Nausea/No Vomiting Muscle Tremors: 4-Moderate,w/Arms Extend Anxiety: 2 Agitation: 3 Paroxysmal Sweats: 1-Minimal Palms Moist Orientation: 0-Oriented Tacttile Disturbances: 1-Very Mild Itch/Numbness Auditory Disturbances: 0-None Visual Disturbances: 0-None Headache: 0-None Present CIWA-Ar Total Score: 11 S Progress Note (SOAP) Subjective: SWEAT TREMOR RESTLESSNESS TROUBLE SLEEP AT NIGHT Objective: 02/17/18 09:15 Vital Signs Temperature 97.3 F L 02/17/18 07:55 Pulse Rate 60 02/17/18 07:55 Respiratory Rate 18 02/17/18 07:55 Blood Pressure 94/62 02/17/18 07:55 O2 Sat by Pulse Oximetry (%) Laboratory Last Values WBC 2.5 K/mm3 (4.0-10.0) L 02/16/18 07:00 RBC 3.47 M/mm3 (4.00-5.60) L 02/16/18 07:00 Hgb 12.1 GM/dL (11.7-16.9) 02/16/18 07:00 Hct 35.6 % (35.4-49) 02/16/18 07:00 MCV 102.7 fl (80-96) H 02/16/18 07:00 MCH 35.0 pg (25.7-33.7) H 02/16/18 07:00 MCHC 34.1 g/dl (32.0-35.9) 02/16/18 07:00 RDW 13.3 % (11.9-15.9) 02/16/18 07:00 Plt Count 38 K/MM3 (134-434) L D 02/16/18 07:00 MPV 9.6 fl (7.5-11.1) 02/16/18 07:00 Sodium 143 mmol/L (136-145) 02/16/18 07:00 Potassium 3.4 mmol/L (3.5-5.1) L 02/16/18 07:00 Chloride 104 mmol/L (98-107) 02/16/18 07:00 Carbon Dioxide 33 mmol/L (21-32) H 02/16/18 07:00 Anion Gap 6 (8-16) L 02/16/18 07:00 BUN 8 mg/dL (7-18) 02/16/18 07:00 Creatinine 0.9 mg/dL (0.7-1.3) 02/16/18 07:00 Creat Clearance w eGFR > 60 (>60) 02/16/18 07:00 Random Glucose 72 mg/dL (74-106) L 02/16/18 07:00 Calcium 7.7 mg/dL (8.5-10.1) L 02/16/18 07:00 Total Bilirubin 1.8 mg/dL (0.2-1.0) H 02/16/18 07:00 AST 276 U/L (15-37) H D 02/16/18 07:00 ALT 57 U/L (12-78) D 02/16/18 07:00 Alkaline Phosphatase 101 U/L (45-117) 02/16/18 07:00 Total Protein 6.7 g/dl (6.4-8.2) 02/16/18 07:00 Albumin 2.7 g/dl (3.4-5.0) L 02/16/18 07:00 Urine Color Noelle 02/16/18 14:00 Urine Appearance Slcloudy 02/16/18 14:00 Urine pH 5.0 (5.0-8.0) 02/16/18 14:00 Ur Specific [place] 1.018 (1.001-1.035) 02/16/18 14:00 Urine Protein 1+ (NEGATIVE) H 02/16/18 14:00 Urine Glucose (UA) Negative (NEGATIVE) 02/16/18 14:00 Urine Ketones Negative (NEGATIVE) 02/16/18 14:00 Urine Blood Negative (NEGATIVE) 02/16/18 14:00 Urine Nitrite Negative (NEGATIVE) 02/16/18 14:00 Urine Bilirubin Negative (<2.0 mg/dL) 02/16/18 14:00 Urine Urobilinogen 4.0 e.u/dl mg/dL (0.2-1.0) 02/16/18 14:00 Ur Leukocyte Esterase Negative (NEGATIVE) 02/16/18 14:00 Urine WBC (Auto) 8 /hpf (3-5) 02/16/18 14:00 Urine RBC (Auto) 3 /hpf (0-3) 02/16/18 14:00 Hyaline Casts 65 /lpf 02/16/18 14:00 Urine Mucus Few 02/16/18 14:00 RPR Titer Nonreactive (NONREACTIVE) 02/16/18 07:00 LAB NOTED REFUSED REPEAT k+ BEGIN k+ SUPPLEMENT Assessment: 02/17/18 09:16 WITHDRAWAL SX 02/17/18 09:16 k+ 3.4 Plan: CONTINUE DETOX k+ SUPPLEMENT
[2018-02-17] MEDS: POTASSIUM CHLORIDE TABS 20 MEQ TABLET.ER (FP) PO SCH (10:19)
[2018-02-17] MEDS: LISINOPRIL 5 MG TABLET (FP) PO SCH (10:19)
[2018-02-17] MEDS: PRENATAL VITAMINS W/ FOLIC ACID TABLET (FP) PO SCH (10:19)
[2018-02-17] MEDS: FUROSEMIDE 40 MG TABLET (FP) PO SCH (10:19)
[2018-02-17] MEDS: CARVEDILOL 12.5 MG TABLET (FP) PO SCH (10:19)
[2018-02-17] MEDS: hydrALAZINE HCL 25 MG TABLET (FP) PO SCH ×2 (10:19→23:52)
[2018-02-17] MEDS: CLOPIDOGREL BISULFATE 75 MG TABLET (FP) PO SCH (10:19)
[2018-02-17] MEDS: ASPIRIN 81 MG CHEWABLE TABLETS PO SCH (10:20)
[2018-02-17] MEDS: NICOTINE 14 MG/24 HOURS TOPICAL PATCH TD SCH (11:20)
[2018-02-17] MEDS: RANITIDINE HCL 150 MG TABLET (FP) PO SCH ×2 (11:27→23:53)
[2018-02-17] MEDS: MIRTAZAPINE 15 MG TABLET (FP) PO SCH (23:52)
[2018-02-17] MEDS: THIAMINE HCL 100 MG TABLET (FP) PO SCH (23:52)
[2018-02-17] MEDS: ATORVASTATIN CA 40 MG TABLET (FP) PO SCH (23:52)
[2018-02-17] MEDS: chlordiazePOXIDE 5 MG CAPSULE PO SCH (23:53)
[2018-02-18] MEDS: chlordiazePOXIDE 5 MG CAPSULE PO SCH ×3 (05:28→18:19)
[2018-02-18] MEDS: CLOPIDOGREL BISULFATE 75 MG TABLET (FP) PO SCH (07:53)
[2018-02-18] MEDS: LISINOPRIL 5 MG TABLET (FP) PO SCH (10:02)
[2018-02-18] MEDS: FUROSEMIDE 40 MG TABLET (FP) PO SCH (10:02)
[2018-02-18] MEDS: POTASSIUM CHLORIDE TABS 20 MEQ TABLET.ER (FP) PO SCH (10:03)
[2018-02-18] MEDS: CARVEDILOL 12.5 MG TABLET (FP) PO SCH (10:03)
[2018-02-18] MEDS: ASPIRIN 81 MG CHEWABLE TABLETS PO SCH (10:03)
[2018-02-18] MEDS: RANITIDINE HCL 150 MG TABLET (FP) PO SCH ×2 (10:03→22:54)
[2018-02-18] MEDS: hydrALAZINE HCL 25 MG TABLET (FP) PO SCH (10:03)
[2018-02-18] MEDS: PRENATAL VITAMINS W/ FOLIC ACID TABLET (FP) PO SCH (10:03)
[2018-02-18] MEDS: NICOTINE 14 MG/24 HOURS TOPICAL PATCH TD SCH (10:05)
--- NOTE | 2018-02-18 15:57 | PN ---
BHS Progress Note (SOAP) Subjective: pt complaints of feeling lightheaded and feeling unsteady while walking- pt on multiple BP meds, here for alcohol detox, d/w pt to hold BP meds- pt not too keen on this Objective: 02/18/18 15:54 Vital Signs - 8 hr 02/18/18 15:00 Temperature 98.2 F Pulse Rate 73 Respiratory 16 Rate Blood Pressure 95/64 Vital Signs - 24 hr 02/17/18 02/17/18 02/18/18 18:46 22:19 00:30 Temperature 96.9 F L 97.9 F Pulse Rate 75 75 Respiratory 18 18 18 Rate Blood Pressure 117/83 114/85 02/18/18 02/18/18 02/18/18 03:30 06:06 15:00 Temperature 96.3 F L 98.2 F Pulse Rate 66 73 Respiratory 18 16 16 Rate Blood Pressure 132/67 95/64 last BP was a bit low, WNL this AM 02/18/18 15:55 Laboratory Tests 02/16/18 02/16/18 02/16/18 07:00 07:00 07:00 WBC 2.5 L RBC 3.47 L Hgb 12.1 Hct 35.6 MCV 102.7 H MCH 35.0 H MCHC 34.1 RDW 13.3 Plt Count 38 L D MPV 9.6 Sodium 143 Potassium 3.4 L Chloride 104 Carbon Dioxide 33 H Anion Gap 6 L BUN 8 Creatinine 0.9 Creat Clearance w eGFR > 60 Random Glucose 72 L Calcium 7.7 L Total Bilirubin 1.8 H AST 276 H D ALT 57 D Alkaline Phosphatase 101 Total Protein 6.7 Albumin 2.7 L Urine Color Urine Appearance Urine pH Ur Specific [place] Urine Protein Urine Glucose (UA) Urine Ketones Urine Blood Urine Nitrite Urine Bilirubin Urine Urobilinogen Ur Leukocyte Esterase Urine WBC (Auto) Urine RBC (Auto) Hyaline Casts Urine Mucus RPR Titer Nonreactive 02/16/18 14:00 WBC RBC Hgb Hct MCV MCH MCHC RDW Plt Count MPV Sodium Potassium Chloride Carbon Dioxide Anion Gap BUN Creatinine Creat Clearance w eGFR Random Glucose Calcium Total Bilirubin AST ALT Alkaline Phosphatase Total Protein Albumin Urine Color Noelle Urine Appearance Slcloudy Urine pH 5.0 Ur Specific [place] 1.018 Urine Protein 1+ H Urine Glucose (UA) Negative Urine Ketones Negative Urine Blood Negative Urine Nitrite Negative Urine Bilirubin Negative Urine Urobilinogen 4.0 e.u/dl Ur Leukocyte Esterase Negative Urine WBC (Auto) 8 Urine RBC (Auto) 3 Hyaline Casts 65 Urine Mucus Few RPR Titer low K and mild anemia with incrased MCV pt walking in hallway, alert and oriented and no focal weakness Assessment: 02/18/18 15:57 ass/plan: continue alcohol detox h/o HTN on multiple BP meds- but no with low BP and symptomatic- will hold a couple of BP meds- low K- will replete anemia with high MCV will give B12 and folate
[2018-02-18] MEDS: THIAMINE HCL 100 MG TABLET (FP) PO SCH (22:54)
[2018-02-18] MEDS: MIRTAZAPINE 15 MG TABLET (FP) PO SCH (22:54)
[2018-02-18] MEDS: chlordiazePOXIDE HCL 10 MG CAPSULE PO SCH (22:54)
[2018-02-18] MEDS: ATORVASTATIN CA 40 MG TABLET (FP) PO SCH (22:54)
[2018-02-19] MEDS: chlordiazePOXIDE HCL 10 MG CAPSULE PO SCH (06:00)
[2018-02-19] MEDS: CLOPIDOGREL BISULFATE 75 MG TABLET (FP) PO SCH (06:25)
[2018-02-19 07:37] VITALS: TEMP 98.2
[2018-02-19] MEDS: ASPIRIN 81 MG CHEWABLE TABLETS PO SCH (09:27)
[2018-02-19] MEDS: RANITIDINE HCL 150 MG TABLET (FP) PO SCH (09:27)
[2018-02-19] MEDS: CARVEDILOL 12.5 MG TABLET (FP) PO SCH (09:28)
[2018-02-19] MEDS: PRENATAL VITAMINS W/ FOLIC ACID TABLET (FP) PO SCH (09:28)
[2018-02-19] MEDS: LISINOPRIL 5 MG TABLET (FP) PO SCH (09:28)
[2018-02-19] MEDS: POTASSIUM CHLORIDE TABS 20 MEQ TABLET.ER (FP) PO SCH (09:28)
[2018-02-19] MEDS: NICOTINE 14 MG/24 HOURS TOPICAL PATCH TD SCH (09:28)
--- NOTE | 2018-02-19 09:28 | PN ---
S Progress Note (SOAP) Subjective: alert,no complaint Objective: 02/19/18 09:27 Vital Signs Temperature 98.2 F 02/19/18 07:36 Pulse Rate 77 02/19/18 07:36 Respiratory Rate 18 02/19/18 07:36 Blood Pressure 121/69 02/19/18 07:36 O2 Sat by Pulse Oximetry (%) Assessment: 02/19/18 09:27 detox completed.no withdrawal symptom Plan: discharge today,follow up with after care program as arrangement
--- NOTE | 2018-02-19 09:31 | DS ---
[facility] Detox Discharge Summary Admission Date: 02/15/18 Discharge Date: 02/19/18 - History Present History: Alcohol Dependence Additional Comments: follow up with after care program as arrangement,patient has all medications at home Pertinent Past History: gedrd history of chf s/p angioplasty with stent hypercholesterolemia hiv weight loss - Physical Exam Results Vital Signs: Vital Signs Temperature 98.2 F 02/19/18 07:36 Pulse Rate 77 02/19/18 07:36 Respiratory Rate 18 02/19/18 07:36 Blood Pressure 121/69 02/19/18 07:36 O2 Sat by Pulse Oximetry (%) Pertinent Admission Physical Exam Findings: withdrawal signs and symptom Vital Signs Temperature 98.2 F 02/19/18 07:36 Pulse Rate 77 02/19/18 07:36 Respiratory Rate 18 02/19/18 07:36 Blood Pressure 121/69 02/19/18 07:36 O2 Sat by Pulse Oximetry (%) Laboratory Last Values WBC 2.5 K/mm3 (4.0-10.0) L 02/16/18 07:00 RBC 3.47 M/mm3 (4.00-5.60) L 02/16/18 07:00 Hgb 12.1 GM/dL (11.7-16.9) 02/16/18 07:00 Hct 35.6 % (35.4-49) 02/16/18 07:00 MCV 102.7 fl (80-96) H 02/16/18 07:00 MCH 35.0 pg (25.7-33.7) H 02/16/18 07:00 MCHC 34.1 g/dl (32.0-35.9) 02/16/18 07:00 RDW 13.3 % (11.9-15.9) 02/16/18 07:00 Plt Count 38 K/MM3 (134-434) L D 02/16/18 07:00 MPV 9.6 fl (7.5-11.1) 02/16/18 07:00 Sodium 143 mmol/L (136-145) 02/16/18 07:00 Potassium 3.4 mmol/L (3.5-5.1) L 02/16/18 07:00 Chloride 104 mmol/L (98-107) 02/16/18 07:00 Carbon Dioxide 33 mmol/L (21-32) H 02/16/18 07:00 Anion Gap 6 (8-16) L 02/16/18 07:00 BUN 8 mg/dL (7-18) 02/16/18 07:00 Creatinine 0.9 mg/dL (0.7-1.3) 02/16/18 07:00 Creat Clearance w eGFR > 60 (>60) 02/16/18 07:00 Random Glucose 72 mg/dL (74-106) L 02/16/18 07:00 Calcium 7.7 mg/dL (8.5-10.1) L 02/16/18 07:00 Total Bilirubin 1.8 mg/dL (0.2-1.0) H 02/16/18 07:00 AST 276 U/L (15-37) H D 02/16/18 07:00 ALT 57 U/L (12-78) D 02/16/18 07:00 Alkaline Phosphatase 101 U/L (45-117) 02/16/18 07:00 Total Protein 6.7 g/dl (6.4-8.2) 02/16/18 07:00 Albumin 2.7 g/dl (3.4-5.0) L 02/16/18 07:00 Urine Color Noelle 02/16/18 14:00 Urine Appearance Slcloudy 02/16/18 14:00 Urine pH 5.0 (5.0-8.0) 02/16/18 14:00 Ur Specific [place] 1.018 (1.001-1.035) 02/16/18 14:00 Urine Protein 1+ (NEGATIVE) H 02/16/18 14:00 Urine Glucose (UA) Negative (NEGATIVE) 02/16/18 14:00 Urine Ketones Negative (NEGATIVE) 02/16/18 14:00 Urine Blood Negative (NEGATIVE) 02/16/18 14:00 Urine Nitrite Negative (NEGATIVE) 02/16/18 14:00 Urine Bilirubin Negative (<2.0 mg/dL) 02/16/18 14:00 Urine Urobilinogen 4.0 e.u/dl mg/dL (0.2-1.0) 02/16/18 14:00 Ur Leukocyte Esterase Negative (NEGATIVE) 02/16/18 14:00 Urine WBC (Auto) 8 /hpf (3-5) 02/16/18 14:00 Urine RBC (Auto) 3 /hpf (0-3) 02/16/18 14:00 Hyaline Casts 65 /lpf 02/16/18 14:00 Urine Mucus Few 02/16/18 14:00 RPR Titer Nonreactive (NONREACTIVE) 02/16/18 07:00 - Treatment Hospital Course: Detox Protocol Followed, Detoxed Safely, Responded well, Discharged Condition Good Patient has Accepted a Rehab Referral to: declined - Medication Discharge Medications: Ambulatory Orders Aspirin [ASA -] 81 mg PO DAILY 10/25/14 Clopidogrel Bisulfate [Clopidogrel] 75 mg PO DAILY 10/25/14 Lisinopril [Prinivil -] 2.5 mg PO DAILY 10/25/14 Pantoprazole Sodium [Protonix] 40 mg PO DAILY 10/25/14 Atorvastatin Calcium 40 mg PO HS 03/18/15 Carvedilol [Coreg -] 12.5 mg PO BID 03/18/15 Furosemide [Lasix -] 40 mg PO DAILY 03/18/15 Elviteg/Cob/Emtri/Tenofo Disop [Stribild Tablet] 1 each PO DAILY 10/22/16 Rilpivirine HCl [Edurant] 25 mg PO DAILY 10/22/16 hydrALAZINE HCL [Apresoline -] 25 mg PO BID 10/22/16 Mirtazapine [Remeron -] 15 mg PO HS #30 tablet 02/16/18 - Diagnosis (1) Alcohol dependence with uncomplicated withdrawal Current Visit: Yes Status: Acute (2) Weight loss Current Visit: Yes Status: Acute (3) CHF (congestive heart failure) Current Visit: Yes Status: Chronic (4) GERD (gastroesophageal reflux disease) Current Visit: Yes Status: Chronic Qualifiers: Esophagitis presence: without esophagitis Qualified Code(s): K21.9 - Gastro -esophageal reflux disease without esophagitis (5) H/O heart artery stent Current Visit: Yes Status: Chronic (6) HIV disease Current Visit: Yes Status: Chronic (7) HTN (hypertension) Current Visit: Yes Status: Chronic Qualifiers: Hypertension type: essential hypertension Qualified Code(s): I10 - Essential (primary) hypertension (8) Hyperlipidemia Current Visit: Yes Status: Chronic Qualifiers: Hyperlipidemia type: unspecified Qualified Code(s): E78.5 - Hyperlipidemia , unspecified (9) Nicotine dependence Current Visit: Yes Status: Chronic Qualifiers: Nicotine product type: cigarettes Substance use status: in withdrawal Qualified Code(s): F17.213 - Nicotine dependence, cigarettes, with withdrawal (10) Peripheral neuropathy Current Visit: Yes Status: Chronic Qualifiers: Peripheral neuropathy type: polyneuropathy, unspecified Qualified Code(s): G62.9 - Polyneuropathy, unspecified (11) Insomnia Current Visit: No Status: Acute Qualifiers: Insomnia type: unspecified Qualified Code(s): G47.00 - Insomnia, unspecified
[2018-02-19] MEDS ORDERED: FOLIC ACID 1 MG TABLET (FP) PO SCH (10:00)
[2018-02-19] MEDS ORDERED: CYANOCOBALAMIN 1,000 MCG TABLET (FP) PO SCH (10:00)
[2018-02-19 11:34] VITALS: BP 100/65; PULSE 76
== END 2018-02-19 10:00 | disposition home or self-care (01) | DRG 775 ==
LOC: YASAS 12:37 → Y6N 17:24
PROVIDERS: ADMIT Surgery; ATTEND Surgery
PROC: HZ2ZZZZ Detoxification Services for Substance Abuse Treatment (ICD-10-PCS; principal; 2018-02-15)
DX: F10.230 Alcohol dependence with withdrawal, uncomplicated (principal); F17.213 Nicotine dependence, cigarettes, with withdrawal; B20 Human immunodeficiency virus [HIV] disease; I25.2 Old myocardial infarction; I25.10 Atherosclerotic heart disease of native coronary artery without angina pectoris; I11.0 Hypertensive heart disease with heart failure; Z95.5 Presence of coronary angioplasty implant and graft; Z95.0 Presence of cardiac pacemaker; G47.00 Insomnia, unspecified; E78.5 Hyperlipidemia, unspecified; G62.9 Polyneuropathy, unspecified; K21.9 Gastro-esophageal reflux disease without esophagitis; R63.4 Abnormal weight loss; Z68.20 Body mass index [BMI] 20.0-20.9, adult; Z86.19 Personal history of other infectious and parasitic diseases; Z91.013 Allergy to seafood
CPT/HCPCS: 36415; 80053; 81003; 81015; 85027; 86593; 93005; 93010

== ENCOUNTER 2018-08-29 14:19 | Inpatient (IN) | payer OTHER ==
[2018-08-29 15:58] VITALS: BMI 19.9
--- NOTE | 2018-08-29 20:27 | HP ---
CIWA Score Nausea/Vomitin-No Nausea/No Vomiting Muscle Tremors: 3 Anxiety: 3 Agitation: 3 Paroxysmal Sweats: 3 (Increased facial perspiration) Orientation: 0-Oriented Tacttile Disturbances: 0-None Auditory Disturbances: 0-None Visual Disturbances: 0-None Headache: 0-None Present CIWA-Ar Total Score: 12 - Admission Criteria OASAS Guidelines: Admission for Medically Managed Detox: Requires at least one of the followin. CIWA greater than 12 2. Seizures within the past 24 hours 3. Delirium tremens within the past 24 hours 4. Hallucinations within the past 24 hours 5. Acute intervention needed for co occurring medical disorder 6. Acute intervention needed for co occurring psychiatric disorder 7. Severe withdrawal that cannot be handled at a lower level of care (continued vomiting, continued diarrhea, abnormal vital signs) requiring intravenous medication and/or fluids 8. Patient presents the following: CIWA greater than 12 (KANNAN from 0.184 to 0.023) Admission Criteria Met: Admission criteria met Admission ROS S - [facility] Chief Complaint: Withdrawing from alcohol. Allergies/Adverse Reactions: Allergies Allergy/AdvReac Type Severity Reaction Status Date / Time shellfish derived Allergy Mild Hives Verified 03/14/18 16:36 No Known Drug Allergies Allergy Verified 03/14/18 16:36 History of Present Illness: I'm here for alcohol detox. Alcohol use since age [age]. Nicotine use since age [age]. Patient declines patch and gum. KANNAN 0.184 on admission. Hydrated and KANNAN now 0.023 PMHX: HIV+, CHF, Cardiac Stents, HTN, Defibrillator insitu MH Hx: Insomnia, depression. Denies thoughts of harming self or others. Denies hx of seizures, blackouts, overdose. Longest period of sobriety, in society, 1 year. States defibrillator updated in March. HIV has not been f/u at [facility] by Dr. Armstrong. States not to restart medications until seen by HIV provider. Encourage f/u w/ HIV, Cardiology, and PCP upon discharge. Search Terms: Jerel Rice, 1965 Search Date: 08/29/2018 08:19:55 PM The Drug Utilization Report below displays all of the controlled substance prescriptions, if any, that your patient has filled in the last twelve months. The information displayed on this report is compiled from pharmacy submissions to the Department, and accurately reflects the information as submitted by the pharmacies. This report was requested by: Sulmajosé Butterfield | Reference #: [id number] There are no results for the search terms that you entered. Exam Limitations: No Limitations - Ebola screening Have you traveled outside of the country in the last 21 days: No Have you had contact with anyone from an Ebola affected area: No Have you been sick,other than usual withdrawal symptoms: No Do you have a fever: No - Review of Systems Constitutional: Diaphoresis, Changes in sleep (Difficulty falling asleep) EENT: reports: No Symptoms Reported Respiratory: reports: SOB with Exertion (Sometimes) Cardiac: reports: No Symptoms Reported, Other (Hx Cardiac Stents and Pacemaker/ defibrillator. Denies chest pain.) GI: reports: Diarrhea (soft, watery, unknown color (states doesn't look)), Indigestion (Occ acid reflux) : reports: No Symptoms Reported Musculoskeletal: reports: No Symptoms Reported Integumentary: reports: Lesions (Top of (R) foot. Completed antibiotics a week ago.) Neuro: reports: Tremors Endocrine: reports: Increased Thirst Hematology: reports: Other (HIV (+)) Psychiatric: reports: Judgement Intact, Orientated x3, Agitated, Anxious, Depressed (Denies thoughts of harming self or others) Patient History - Patient Medical History Hx Anemia: No Hx Asthma: No Hx Chronic Obstructive Pulmonary Disease (COPD): No Hx Cancer: No Hx Cardiac Disorders: Yes Hx Congestive Heart Failure: Yes Hx Hypertension: Yes Hx Hypercholesterolemia: Yes ("IT'S UNDER CONTROL"--NO MEDS) Hx Pacemaker: Yes (07/2015) HX Cerebrovascular Accident: No Hx Seizures: No Hx Dementia: No Hx Diabetes: No Hx Gastrointestinal Disorders: No Hx Liver Disease: No Hx Genitourinary Disorders: No Hx Sexually Transmitted Disorders: No Hx Renal Disease (ESRD): No Hx Thyroid Disease: No Hx Human Immunodeficiency Virus (HIV): Yes (SINCE 1994-ON MEDS; ORAL THRUSH AND PCP PNEUMONIA IN THE PAST.) Hx Hepatitis C: No Hx Depression: Yes Hx Suicide Attempt: No (DENIES PAST AND PRESENT S/I TODAY) Hx Bipolar Disorder: No (HX INSOMNIA) Hx Schizophrenia: No - Patient Surgical History Past Surgical History: Yes Hx Neurologic Surgery: No Hx Cataract Extraction: No Hx Cardiac Surgery: Yes (Cardiac cath with 3 stents in 07/15) Hx Lung Surgery: No Hx Breast Surgery: No Hx Breast Biopsy: No Hx Abdominal Surgery: No Hx Appendectomy: No Hx Cholecystectomy: No Hx Genitourinary Surgery: No Hx Section: No Hx Orthopedic Surgery: No Other Surgical History: pacemaker implanted in 2013 Anesthesia Reaction: No - PPD History Results: CXR(-) 07/11/17 - Smoking Cessation Smoking history: Current every day smoker Have you smoked in the past 12 months: Yes Aproximately how many cigarettes per day: 20 Cigars Per Day: 0 Hx Chewing Tobacco Use: No Initiated information on smoking cessation: Yes 'Breaking Loose' booklet given: 08/29/18 - Substances Abused Alcohol Route: Oral Frequency: Daily Amount used: 1 PINT [place]ODKA Age of first use: 16 Date of Last Use: 08/29/18 Family Disease History - Family Disease History Family Disease History: CA: Father (, cancer), Other: Father, Mother ( alive and well ) Admission Physical Exam BHS - Vital Signs Vital Signs: Vital Signs - 24 hr 08/29/18 15:57 Temperature 98.6 F Pulse Rate 74 Respiratory 18 Rate Blood Pressure 114/60 - Physical General Appearance: Yes: Appropriately Dressed, Mild Distress, Tremorous, Sweating, Anxious, Other (KANNAN from 0.184 to 0.023) HEENTM: Yes: EOMI (Jerking of eyes w/ (R) lateral gaze), Hearing grossly Normal , Normal ENT Inspection, Normal Voice, FILOMENA, Pharynx Normal, Nasal Congestion, Other ([place] sclera) Respiratory: Yes: Lungs Clear, Normal Breath Sounds, No Respiratory Distress Neck: Yes: No masses,lesions,Nodules, Supple Breast: Yes: Breast Exam Deferred Cardiology: Yes: Regular Rhythm, Regular Rate, S1, S2, Other (Pacemaker/ defibrillator (L) upper chest area) Abdominal: Yes: Non Tender, Flat, Soft, Increased Bowel Sounds Genitourinary: Yes: Within Normal Limits Back: Yes: Normal Inspection Musculoskeletal: Yes: full range of Motion, Gait Steady Extremities: Yes: Normal Capillary Refill, Normal Range of Motion, Non-Tender, Tremors (Mild tremors of hands at rest) Neurological: Yes: coffee weigher II-XII NML intact (Jerking of eyes w/ (R) lateral gaze) Integumentary: Yes: Normal Color, Dry (Decreased skin turgor), Warm, Other ( Abrasion (R) foot at great toe transmetatarsal area. Pinkish skin exposure w/o drainage, or increased surrounding warmth.) Lymphatic: Yes: Within Normal Limits - Diagnostic (1) Presence of automatic implantable cardioverter-defibrillator Current Visit: Yes Status: Chronic (2) Alcohol dependence with uncomplicated withdrawal Current Visit: Yes Status: Acute (3) GERD (gastroesophageal reflux disease) Current Visit: Yes Status: Chronic Qualifiers: Esophagitis presence: without esophagitis Qualified Code(s): K21.9 - Gastro -esophageal reflux disease without esophagitis (4) H/O heart artery stent Current Visit: Yes Status: Chronic (5) Abrasion foot/toe Current Visit: Yes Status: Chronic Qualifiers: Encounter type: subsequent encounter Laterality: right Qualified Code(s) : S90.811D - Abrasion, right foot, subsequent encounter (6) Nystagmus Current Visit: Yes Status: Acute (7) History of HIV infection Current Visit: Yes Status: Chronic Comment: Not currently on medications. Needs to f/u w/ Provider for lab tests. (8) History of CHF (congestive heart failure) Current Visit: No Status: Chronic (9) HTN (hypertension) Current Visit: Yes Status: Chronic Qualifiers: Hypertension type: essential hypertension Qualified Code(s): I10 - Essential (primary) hypertension (10) Nicotine dependence Current Visit: Yes Status: Chronic Qualifiers: Nicotine product type: cigarettes Substance use status: uncomplicated Qualified Code(s): F17.210 - Nicotine dependence, cigarettes, uncomplicated Cleared for Admission [facility] - Detox or Rehab [facility] Level of Care: Medically Managed Detox Regimen/Protocol: Librium [facility] Breath Alcohol Content Breath Alcohol Content: 0.184 Urine Drug Screen - Results Drug Screen Negative: Yes
[2018-08-29] MEDS ORDERED: MELATONIN 5 MG TABLETS PO PRN (22:00)
[2018-08-29] MEDS ORDERED: MAG HYDROX/AL HYDROX/SIMETH 30 ML UNIT-DOSE CUP PO PRN (22:31)
[2018-08-29] MEDS ORDERED: ACETAMINOPHEN 325 MG TABLET (FP) PO PRN (22:31)
[2018-08-29] MEDS ORDERED: LOPERAMIDE HCL 2 MG CAPSULE PO PRN (22:31)
[2018-08-29] MEDS ORDERED: chlordiazePOXIDE HCL 25 MG CAPSULE PO PRN (22:31)
[2018-08-29] MEDS ORDERED: P-EPHED 60MG/TRIPROLIDI 2.5MG TABLET PO PRN (22:31)
[2018-08-29] MEDS ORDERED: MAGNESIUM CITRATE 300 ML BOTTLE PO PRN (22:31)
[2018-08-29] MEDS ORDERED: MENTHOL/PHENOL 1 EACH UD MM PRN (22:31)
[2018-08-29] MEDS ORDERED: MAGNESIUM HYDROX 2400MG/30ML ORAL SUSPENSION 30 ML CUP PO PRN (22:31)
[2018-08-29] MEDS ORDERED: IBUPROFEN 400 MG TABLET (FP) PO PRN (22:31)
[2018-08-29] MEDS: chlordiazePOXIDE HCL 25 MG CAPSULE PO SCH (23:15)
[2018-08-30] MEDS: chlordiazePOXIDE HCL 25 MG CAPSULE PO SCH ×4 (05:22→22:16)
[2018-08-30] MEDS ORDERED: FUROSEMIDE 40 MG TABLET (FP) PO SCH (10:00)
[2018-08-30] MEDS ORDERED: CARVEDILOL 12.5 MG TABLET (FP) PO SCH (10:00)
--- NOTE | 2018-08-30 10:15 | PN ---
S CIWA - CIWA Score Nausea/Vomitin-Mild Nausea/No Vomiting Muscle Tremors: 4-Moderate,w/Arms Extend Anxiety: 3 Agitation: 4-Moderately Restless Paroxysmal Sweats: No Perspiration Orientation: 1-Uncertain about Date Tacttile Disturbances: 0-None Auditory Disturbances: 0-None Visual Disturbances: 0-None Headache: 2-Mild CIWA-Ar Total Score: 15 BHS Progress Note (SOAP) Subjective: tremor sweating restlessness anxiety patient is in good spirit social with peers in day room Objective: 08/30/18 10:16 Vital Signs Temperature 98.8 F 08/30/18 09:07 Pulse Rate 72 08/30/18 09:07 Respiratory Rate 17 08/30/18 09:07 Blood Pressure 110/70 08/30/18 09:07 O2 Sat by Pulse Oximetry (%) lab pending Assessment: 08/30/18 10:16 withdrawal sx Plan: continue detox
[2018-08-30] MEDS: BACITRACIN 0.9 GM PACKET TP SCH ×2 (10:41→22:18)
[2018-08-30] MEDS: CARVEDILOL 12.5 MG TABLET (FP) PO SCH ×2 (10:41→22:16)
[2018-08-30] MEDS: FUROSEMIDE 40 MG TABLET (FP) PO SCH (10:41)
[2018-08-30] MEDS: ASPIRIN 81 MG CHEWABLE TABLETS PO SCH (10:41)
[2018-08-30] MEDS: PRENATAL VITAMINS W/ FOLIC ACID TABLET (FP) PO SCH (10:42)
[2018-08-30 10:55] LABS: HEMATOCRIT 30.3 % (35.4-49); HEMOGLOBIN 10.7 GM/dL (11.7-16.9); MCH 37.9 pg (25.7-33.7); MCHC 35.2 g/dl (32.0-35.9); MEAN CELL VOLUME 107.6 fl (80-96); MEAN PLT VOLUME 9.9 fl (7.5-11.1); PLATELET COUNT 145 K/MM3 (134-434); RBC 2.82 M/mm3 (4.00-5.60); RDW 14.1 % (11.9-15.9); WHITE BLOOD COUNT 2.3 K/mm3 (4.0-10.0)
[2018-08-30 11:33] LABS: ALBUMIN 2.5 g/dl (3.4-5.0); ALK PHOS 196 U/L (45-117); ANION GAP 9 MMOL/L (8-16); BILIRUBIN,TOTAL 0.9 mg/dL (0.2-1); BLOOD UREA NITROGEN 10 mg/dL (7-18); CALCIUM 8.6 mg/dL (8.5-10.1); CHLORIDE 103 mmol/L (98-107); CO2 31 mmol/L (21-32); CREATININE 0.8 mg/dL (0.55-1.3); GLUCOSE,RANDOM 99 mg/dL (74-106); SGOT/AST 251 U/L (15-37); SGPT/ALT 99 U/L (13-61); SODIUM 143 mmol/L (136-145); TOT PROT 6.8 g/dl (6.4-8.2)
[2018-08-30 12:36] LABS: POTASSIUM 2.8 mmol/L (3.5-5.1)
[2018-08-30] MEDS: POTASSIUM CHLORIDE TABS 20 MEQ TABLET.ER (FP) PO SCH ×2 (13:08→22:16)
--- NOTE | 2018-08-30 15:51 | EKG ---
Test Reason : Blood Pressure : / mmHG Vent. Rate : 079 BPM Atrial Rate : 079 BPM P-R Int : 164 ms QRS Dur : 094 ms QT Int : 410 ms P-R-T Axes : 048 002 238 degrees QTc Int : 470 ms SINUS RHYTHM WITH PREMATURE ATRIAL COMPLEXES ANTEROSEPTAL INFARCT (CITED ON OR BEFORE 10-JUL-2017) ABNORMAL ECG WHEN COMPARED WITH ECG OF 15-MAR-2018 12:05, PREMATURE ATRIAL COMPLEXES ARE NOW PRESENT NONSPECIFIC T WAVE ABNORMALITY HAS REPLACED INVERTED T WAVES IN INFERIOR LEADS T WAVE INVERSION NOW EVIDENT IN ANTERIOR LEADS QT HAS SHORTENED Confirmed by Mason Brower ([id number]) on 08/30/2018 3:51:38 PM Referred By: Confirmed By:Mason Brower
[2018-08-30] MEDS: THIAMINE HCL 100 MG TABLET (FP) PO SCH (22:15)
[2018-08-31] MEDS: chlordiazePOXIDE HCL 25 MG CAPSULE PO SCH (05:18)
--- NOTE | 2018-08-31 10:01 | PN ---
S CIWA - CIWA Score Nausea/Vomitin-Mild Nausea/No Vomiting Muscle Tremors: 3 Anxiety: 3 Agitation: 2 Paroxysmal Sweats: 1-Minimal Palms Moist Orientation: 0-Oriented Tacttile Disturbances: 0-None Auditory Disturbances: 0-None Visual Disturbances: 0-None Headache: 2-Mild CIWA-Ar Total Score: 12 BHS Progress Note (SOAP) Subjective: tremor sweating Objective: 08/31/18 10:00 Vital Signs Temperature 97.9 F 08/31/18 09:15 Pulse Rate 71 08/31/18 09:15 Respiratory Rate 18 08/31/18 09:15 Blood Pressure 104/68 08/31/18 09:15 O2 Sat by Pulse Oximetry (%) Laboratory Last Values WBC 2.3 K/mm3 (4.0-10.0) L 08/30/18 07:00 RBC 2.82 M/mm3 (4.00-5.60) L 08/30/18 07:00 Hgb 10.7 GM/dL (11.7-16.9) L 08/30/18 07:00 Hct 30.3 % (35.4-49) L 08/30/18 07:00 MCV 107.6 fl (80-96) H 08/30/18 07:00 MCH 37.9 pg (25.7-33.7) H D 08/30/18 07:00 MCHC 35.2 g/dl (32.0-35.9) 08/30/18 07:00 RDW 14.1 % (11.9-15.9) 08/30/18 07:00 Plt Count 145 K/MM3 (134-434) D 08/30/18 07:00 MPV 9.9 fl (7.5-11.1) 08/30/18 07:00 Sodium 143 mmol/L (136-145) 08/30/18 07:00 Potassium 2.8 mmol/L (3.5-5.1) L* 08/30/18 07:00 Chloride 103 mmol/L (98-107) 08/30/18 07:00 Carbon Dioxide 31 mmol/L (21-32) 08/30/18 07:00 Anion Gap 9 MMOL/L (8-16) 08/30/18 07:00 BUN 10 mg/dL (7-18) 08/30/18 07:00 Creatinine 0.8 mg/dL (0.55-1.3) 08/30/18 07:00 Creat Clearance w eGFR > 60 (>60) 08/30/18 07:00 Random Glucose 99 mg/dL (74-106) 08/30/18 07:00 Calcium 8.6 mg/dL (8.5-10.1) 08/30/18 07:00 Total Bilirubin 0.9 mg/dL (0.2-1) 08/30/18 07:00 AST 251 U/L (15-37) H 08/30/18 07:00 ALT 99 U/L (13-61) H 08/30/18 07:00 Alkaline Phosphatase 196 U/L (45-117) H 08/30/18 07:00 Total Protein 6.8 g/dl (6.4-8.2) 08/30/18 07:00 Albumin 2.5 g/dl (3.4-5.0) L 08/30/18 07:00 RPR Titer Nonreactive (NONREACTIVE) 08/30/18 07:00 lab noted low K+ low wbc ast elevation Assessment: 08/31/18 10:01 withdrawal sx Plan: continue detox K+ supplement
[2018-08-31] MEDS ORDERED: LORazepam 1 MG TABLET PO PRN (10:34)
[2018-08-31] MEDS: PRENATAL VITAMINS W/ FOLIC ACID TABLET (FP) PO SCH (10:35)
[2018-08-31] MEDS: ASPIRIN 81 MG CHEWABLE TABLETS PO SCH (10:35)
[2018-08-31] MEDS: BACITRACIN 0.9 GM PACKET TP SCH ×2 (10:35→22:28)
[2018-08-31] MEDS: FUROSEMIDE 40 MG TABLET (FP) PO SCH (10:35)
[2018-08-31] MEDS: CARVEDILOL 12.5 MG TABLET (FP) PO SCH ×2 (10:35→22:34)
[2018-08-31] MEDS: POTASSIUM CHLORIDE TABS 20 MEQ TABLET.ER (FP) PO SCH ×2 (10:35→22:35)
[2018-08-31] MEDS: LORazepam 1 MG TABLET PO SCH ×3 (10:49→22:34)
[2018-08-31] MEDS: THIAMINE HCL 100 MG TABLET (FP) PO SCH (22:35)
[2018-08-31] MEDS ORDERED: chlordiazePOXIDE 5 MG CAPSULE PO SCH (23:00)
[2018-09-01] MEDS: LORazepam 1 MG TABLET PO SCH ×4 (05:43→22:17)
--- NOTE | 2018-09-01 09:34 | PN ---
BHS Progress Note (SOAP) Subjective: feeling better less tremor mild sweating preferred return to infectious disease specialist for follow up and occupational therapy instructor for chf discuss negative consequences of alcohol misuse related cardiovascular issues Objective: 09/01/18 09:33 Vital Signs Temperature 98.8 F 09/01/18 09:11 Pulse Rate 76 09/01/18 09:11 Respiratory Rate 18 09/01/18 09:11 Blood Pressure 103/68 09/01/18 09:11 O2 Sat by Pulse Oximetry (%) Laboratory Last Values WBC 2.3 K/mm3 (4.0-10.0) L 08/30/18 07:00 RBC 2.82 M/mm3 (4.00-5.60) L 08/30/18 07:00 Hgb 10.7 GM/dL (11.7-16.9) L 08/30/18 07:00 Hct 30.3 % (35.4-49) L 08/30/18 07:00 MCV 107.6 fl (80-96) H 08/30/18 07:00 MCH 37.9 pg (25.7-33.7) H D 08/30/18 07:00 MCHC 35.2 g/dl (32.0-35.9) 08/30/18 07:00 RDW 14.1 % (11.9-15.9) 08/30/18 07:00 Plt Count 145 K/MM3 (134-434) D 08/30/18 07:00 MPV 9.9 fl (7.5-11.1) 08/30/18 07:00 Sodium 143 mmol/L (136-145) 08/30/18 07:00 Potassium 2.8 mmol/L (3.5-5.1) L* 08/30/18 07:00 Chloride 103 mmol/L (98-107) 08/30/18 07:00 Carbon Dioxide 31 mmol/L (21-32) 08/30/18 07:00 Anion Gap 9 MMOL/L (8-16) 08/30/18 07:00 BUN 10 mg/dL (7-18) 08/30/18 07:00 Creatinine 0.8 mg/dL (0.55-1.3) 08/30/18 07:00 Creat Clearance w eGFR > 60 (>60) 08/30/18 07:00 Random Glucose 99 mg/dL (74-106) 08/30/18 07:00 Calcium 8.6 mg/dL (8.5-10.1) 08/30/18 07:00 Total Bilirubin 0.9 mg/dL (0.2-1) 08/30/18 07:00 AST 251 U/L (15-37) H 08/30/18 07:00 ALT 99 U/L (13-61) H 08/30/18 07:00 Alkaline Phosphatase 196 U/L (45-117) H 08/30/18 07:00 Total Protein 6.8 g/dl (6.4-8.2) 08/30/18 07:00 Albumin 2.5 g/dl (3.4-5.0) L 08/30/18 07:00 RPR Titer Nonreactive (NONREACTIVE) 08/30/18 07:00 09/01/18 09:34 potassium + ast level pending Assessment: 09/01/18 09:34 mild withdrawal sx Plan: continue detox
[2018-09-01 10:42] LABS: POTASSIUM 3.7 mmol/L (3.5-5.1)
[2018-09-01] MEDS: BACITRACIN 0.9 GM PACKET TP SCH ×2 (11:18→22:17)
[2018-09-01] MEDS: ASPIRIN 81 MG CHEWABLE TABLETS PO SCH (11:19)
[2018-09-01] MEDS: PRENATAL VITAMINS W/ FOLIC ACID TABLET (FP) PO SCH (11:19)
[2018-09-01] MEDS: FUROSEMIDE 40 MG TABLET (FP) PO SCH (11:20)
[2018-09-01] MEDS: CARVEDILOL 12.5 MG TABLET (FP) PO SCH ×2 (11:20→22:18)
[2018-09-01] MEDS: POTASSIUM CHLORIDE TABS 20 MEQ TABLET.ER (FP) PO SCH (11:25)
[2018-09-01] MEDS ORDERED: POTASSIUM CHLORIDE TABS 20 MEQ TABLET.ER (FP) PO ONE (11:43)
[2018-09-01] MEDS: THIAMINE HCL 100 MG TABLET (FP) PO SCH (22:17)
[2018-09-01] MEDS ORDERED: chlordiazePOXIDE HCL 10 MG CAPSULE PO SCH (23:00)
[2018-09-02] MEDS ORDERED: LORazepam 2 MG TABLET PO ONE (06:00)
[2018-09-02 09:15] VITALS: BP 111/80; PULSE 88; TEMP 99
--- NOTE | 2018-09-02 09:40 | PN ---
BHS Progress Note (SOAP) Subjective: I"m better Objective: 09/02/18 09:38 Vital Signs Temperature 99.0 F 09/02/18 09:14 Pulse Rate 88 09/02/18 09:14 Respiratory Rate 18 09/02/18 09:14 Blood Pressure 111/80 09/02/18 09:14 O2 Sat by Pulse Oximetry (%) Laboratory Tests 08/30/18 08/30/18 08/30/18 07:00 07:00 07:00 WBC 2.3 L RBC 2.82 L Hgb 10.7 L Hct 30.3 L MCV 107.6 H MCH 37.9 H D MCHC 35.2 RDW 14.1 Plt Count 145 D MPV 9.9 Sodium 143 Potassium 2.8 L* Chloride 103 Carbon Dioxide 31 Anion Gap 9 BUN 10 Creatinine 0.8 Creat Clearance w eGFR > 60 Random Glucose 99 Calcium 8.6 Total Bilirubin 0.9 AST 251 H ALT 99 H Alkaline Phosphatase 196 H Total Protein 6.8 Albumin 2.5 L RPR Titer Nonreactive 09/01/18 07:00 WBC RBC Hgb Hct MCV MCH MCHC RDW Plt Count MPV Sodium Potassium 3.7 Chloride Carbon Dioxide Anion Gap BUN Creatinine Creat Clearance w eGFR Random Glucose Calcium Total Bilirubin AST 208 H ALT Alkaline Phosphatase Total Protein Albumin RPR Titer pt aox3 in nad ambulating Assessment: 09/02/18 09:40 detox completed Plan: d/c to home
--- NOTE | 2018-09-02 09:43 | DS ---
[facility] Detox Discharge Summary Admission Date: 08/29/18 Discharge Date: 09/02/18 - History Present History: Alcohol Dependence - Physical Exam Results Vital Signs: Vital Signs Temperature 99.0 F 09/02/18 09:14 Pulse Rate 88 09/02/18 09:14 Respiratory Rate 18 09/02/18 09:14 Blood Pressure 111/80 09/02/18 09:14 O2 Sat by Pulse Oximetry (%) - Treatment Hospital Course: Detox Protocol Followed, Detoxed Safely, Responded well, Discharged Condition Good - Medication Discharge Medications: Ambulatory Orders Aspirin [ASA -] 81 mg PO DAILY 10/25/14 Elviteg/Cob/Emtri/Tenofo Disop [Stribild Tablet] 1 each PO DAILY 10/22/16 Rilpivirine HCl [Edurant] 25 mg PO DAILY 10/22/16 Mirtazapine [Remeron -] 15 mg PO HS #30 tablet 02/16/18 Carvedilol [Coreg -] 12.5 mg PO BID #30 tablet 09/01/18 Furosemide [Lasix -] 40 mg PO DAILY #14 tablet 09/01/18 - Diagnosis (1) Alcohol dependence with uncomplicated withdrawal Current Visit: Yes Status: Chronic (2) GERD (gastroesophageal reflux disease) Current Visit: Yes Status: Chronic Qualifiers: Esophagitis presence: without esophagitis Qualified Code(s): K21.9 - Gastro -esophageal reflux disease without esophagitis (3) HTN (hypertension) Current Visit: Yes Status: Chronic Qualifiers: Hypertension type: essential hypertension Qualified Code(s): I10 - Essential (primary) hypertension (4) History of HIV infection Current Visit: Yes Status: Chronic (5) Nicotine dependence Current Visit: Yes Status: Chronic Qualifiers: Nicotine product type: cigarettes Substance use status: uncomplicated Qualified Code(s): F17.210 - Nicotine dependence, cigarettes, uncomplicated (6) CHF (congestive heart failure) Current Visit: No Status: Chronic (7) HIV disease Current Visit: No Status: Chronic (8) History of CHF (congestive heart failure) Current Visit: No Status: Chronic (9) Peripheral neuropathy Current Visit: No Status: Chronic Qualifiers: Peripheral neuropathy type: polyneuropathy, unspecified Qualified Code(s): G62.9 - Polyneuropathy, unspecified - AMA Did Patient Leave Against Medical Advice: No
[2018-09-02] MEDS ORDERED: POTASSIUM CHLORIDE TABS 20 MEQ TABLET.ER (FP) PO SCH ×2 (10:00)
== END 2018-09-02 09:24 | disposition home or self-care (01) | DRG 775 ==
LOC: YASAS 14:19 → Y3N 22:45
PROVIDERS: ADMIT Neuromusculoskeletal Medicine & OMM; ATTEND Neuromusculoskeletal Medicine & OMM
PROC: HZ2ZZZZ Detoxification Services for Substance Abuse Treatment (ICD-10-PCS; principal; 2018-08-29)
DX: F10.230 Alcohol dependence with withdrawal, uncomplicated (principal); F17.210 Nicotine dependence, cigarettes, uncomplicated; I11.0 Hypertensive heart disease with heart failure; K21.9 Gastro-esophageal reflux disease without esophagitis; B20 Human immunodeficiency virus [HIV] disease; I50.9 Heart failure, unspecified; G62.9 Polyneuropathy, unspecified; H55.00 Unspecified nystagmus; Z95.810 Presence of automatic (implantable) cardiac defibrillator; Z95.5 Presence of coronary angioplasty implant and graft; Z91.013 Allergy to seafood
CPT/HCPCS: 36415; 80053; 84132; 84450; 85027; 86593; 93005; 93010